=== PATIENT | female | born 1995 | race Caucasian/White ===

== ENCOUNTER 2019-11-01 09:55 | Emergency (ER) | payer MEDICAID, OTHER ==
[~2019-11-01] VITALS: Ht 175.2 cm; Wt 54.5 kg
[2019-11-01 10:31] LABS: SODIUM 139 MMOL/L (135-145)
[2019-11-01 10:32] LABS: ALANINE AMINOTRANSFERASE 5 U/L (0-55); ALBUMIN 4.1 GM/DL (3.2-4.5); ALKALINE PHOSPHATASE 54 U/L (40-136); BILIRUBIN,TOTAL 0.6 MG/DL (0.1-1.0); BUN/CREATININE RATIO 29; CALCIUM 8.9 MG/DL (8.5-10.1); CARBON DIOXIDE 23 MMOL/L (21-32); CHLORIDE 106 MMOL/L (98-107); CREATININE SERUM 0.63 MG/DL (0.60-1.30); GFR ESTIMATED > 60; GLUCOSE 96 MG/DL (70-105); LIPASE 26 U/L (8-78); TOTAL PROTEIN 7.5 GM/DL (6.4-8.2)
[2019-11-01 10:33] LABS: HEMATOCRIT 36 % (35-52); HEMOGLOBIN 12.5 G/DL (11.5-16.0); MEAN CORPUSCULAR HEMOGLOBIN 29 PG (25-34); MEAN CORPUSCULAR VOLUME 84 FL (80-99); WHITE BLOOD COUNT 7.1 10^3/uL (4.3-11.0)
[2019-11-01 10:34] LABS: BASOPHILS % (AUTO) 0 % (0-10); EOSINOPHILS # (AUTO) 0.2 10^3/uL (0.0-0.3); EOSINOPHILS % (AUTO) 2 % (0-10); LYMPHOCYTES # (AUTO) 2.1 X 10^3 (1.0-4.0); LYMPHOCYTES % (AUTO) 30 % (12-44); MEAN CORPUSCULAR HGB CONC 35 G/DL (32-36); MEAN PLATELET VOLUME 9.7 FL (7.4-10.4); MONOCYTES # (AUTO) 0.5 X 10^3 (0.0-1.0); MONOCYTES % (AUTO) 7 % (0-12); NEUTROPHILS # (AUTO) 4.3 X 10^3 (1.8-7.8); NEUTROPHILS % (AUTO) 61 % (42-75); PLATELET COUNT 255 10^3/uL (130-400); RED CELL DISTRIBUTION WIDTH 12.6 % (10.0-14.5)
--- NOTE | 2019-11-01 10:37 | Diagnostic Imaging Report ---
INDICATION: Abdominal pain COMPARISON: None available TECHNIQUE: 3 radiographs of the abdomen dated 11/01/2019. FINDINGS: Visualized lung bases are clear. Gas is identified throughout the colon extending into the lower pelvis. No dilated loops of small bowel. No differential air-fluid levels. No free air. No suspicious calcifications overlying the renal shadows. The liver appears borderline enlarged measuring up to 19 cm in craniocaudal dimension. IMPRESSION: No evidence of bowel obstruction or free air. Borderline hepatomegaly. Dictated by: Dictated on workstation # [id number]
--- NOTE | 2019-11-01 10:41 | ED Abdominal Pain ---
General Chief Complaint: Abdominal/GI Problems Stated Complaint: ABD PAIN Nursing Triage Note: Patient to ED per [facility]. Boyfriend called 911 for pt's severe abd pain that started just 1 hr before arriving awakening her. Pt denies other symptoms. Sepsis Screen: No Definite Risk Source of Information: Patient History of Present Illness Date Seen by Provider: Nov 01, 2019 Time Seen by Provider: 10:00 Initial Comments 24-year-old female presents with sudden onset of abdominal pain that woke her from sleep this morning. Denies any nausea vomiting or diarrhea. Normal bowel movement yesterday. [place] fine yesterday without any abdominal pain, had a normal meal last night, nothing unusual. Pain is located in the middle of her abdomen and upwards and on both sides. Feels like cramping, her last menstrual period was over a month ago. She is on control, sexually active and normal regular menstrual cycle. w 4 [facility] Allergies and Home Medications Allergies Coded Allergies: Penicillins (Unverified Adverse Reaction, Unknown, 11/01/19) ondansetron (Unverified Adverse Reaction, Unknown, 11/01/19) Uncoded Allergies: Silk tape (Adverse Reaction, Mild, rash, 11/01/19) Home Medications Norgestimate-Ethinyl Estradiol 1 Each Tablet, 1 EACH PO DAILY, (Reported) Patient Home Medication List Home Medication List Reviewed: Yes Review of Systems Review of Systems Constitutional: see HPI; No dizziness, No fever; malaise; No weakness Respiratory: No Symptoms Reported Cardiovascular: No Symptoms Reported Gastrointestinal: See HPI; Denies Abdomen Distended; Abdominal Pain; Denies Constipated, Denies Diarrhea, Denies Difficulty Swallowing, Denies Nausea, Denies Poor Appetite, Denies Poor Fluid Intake, Denies Vomiting Genitourinary: Denies Burning, Denies Drainage, Denies Frequency, Denies Flank Pain, Denies Hematuria Musculoskeletal: No back pain, No joint pain Skin: No change in color, No rash Past Dnovspr-Xpikdp-Tjmcfm Hx Past Med/Social Hx: Reviewed Nursing Past Med/Soc Hx Patient Social History Alcohol Use: Occasionally Uses Recreational Drug Use: No (Strongly denied) Smoking Status: Never a Smoker Recent Foreign Travel: No Contact w/Someone Who Travel: No Recent Infectious Disease Expo: No Recent Hopitalizations: No Physical Abuse: No Sexual Abuse: No Mistreated: No Fear: No Seasonal Allergies Seasonal Allergies: No Past Medical History Surgeries: Yes (C/S x 2) Adenoidectomy, Section, Tonsillectomy Respiratory: No Cardiac: No Neurological: No Last Menstrual Period: Sep 23, 2019 Hx : 6 Hx Para: 2 Hx Total # of Abortions (Sp): 4 Genitourinary: No Gastrointestinal: No Musculoskeletal: No Endocrine: No HEENT: No Cancer: No Psychosocial: No Integumentary: No Blood Disorders: No Physical Exam Vital Signs Vital Signs - First Documented 11/01/19 09:55 Temp 37.0 Pulse 74 Resp 16 B/P (MAP) 109/67 (81) Pulse Ox 98 O2 Delivery Room Air Capillary Refill : Less Than 3 Seconds Height/Weight/BMI Height: '" Weight: lbs. oz. kg; 17.00 BMI Method: General Appearance: WD/WN, no apparent distress Respiratory: chest non-tender, lungs clear, normal breath sounds Cardiovascular: regular rate, rhythm, no edema, no JVD Gastrointestinal: normal bowel sounds, soft, no organomegaly, no pulsatile mass; No distended, No guarding, No rebound; tenderness (diffuse, mild, non- localized); No hernia, No mass Back: normal inspection, no CVA tenderness Neurologic/Psychiatric: alert, normal mood/affect Skin: normal color, warm/dry Progress/Results/Core Measures Results/Orders Lab Results Laboratory Tests Test 11/01/19 10:00 11/01/19 10:13 Range/Units White Blood Count 7.1 4.3-11.0 10^3/uL Red Blood Count 4.29 L 4.35-5.85 10^6/uL Hemoglobin 12.5 11.5-16.0 G/DL Hematocrit 36 35-52 % Mean Corpuscular Volume 84 80-99 FL Mean Corpuscular Hemoglobin 29 25-34 PG Mean Corpuscular Hemoglobin Concent 35 32-36 G/DL Red Cell Distribution Width 12.6 10.0-14.5 % Platelet Count 255 130-400 10^3/uL Mean Platelet Volume 9.7 7.4-10.4 FL Neutrophils (%) (Auto) 61 42-75 % Lymphocytes (%) (Auto) 30 12-44 % Monocytes (%) (Auto) 7 0-12 % Eosinophils (%) (Auto) 2 0-10 % Basophils (%) (Auto) 0 0-10 % Neutrophils # (Auto) 4.3 1.8-7.8 X 10^3 Lymphocytes # (Auto) 2.1 1.0-4.0 X 10^3 Monocytes # (Auto) 0.5 0.0-1.0 X 10^3 Eosinophils # (Auto) 0.2 0.0-0.3 10^3/uL Basophils # (Auto) 0.0 0.0-0.1 10^3/uL Sodium Level 139 135-145 MMOL/L Potassium Level 4.0 3.6-5.0 MMOL/L Chloride Level 106 98-107 MMOL/L Carbon Dioxide Level 23 21-32 MMOL/L Anion Gap 10 5-14 MMOL/L Blood Urea Nitrogen 18 7-18 MG/DL Creatinine 0.63 0.60-1.30 MG/DL Estimat Glomerular Filtration Rate > 60 BUN/Creatinine Ratio 29 Glucose Level 96 70-105 MG/DL Calcium Level 8.9 8.5-10.1 MG/DL Corrected Calcium 8.8 8.5-10.1 MG/DL Total Bilirubin 0.6 0.1-1.0 MG/DL Aspartate Amino Transf (AST/SGOT) 12 5-34 U/L Alanine Aminotransferase (ALT/SGPT) 5 0-55 U/L Alkaline Phosphatase 54 40-136 U/L Total Protein 7.5 6.4-8.2 GM/DL Albumin 4.1 3.2-4.5 GM/DL Lipase 26 8-78 U/L Urine Color YELLOW Urine Clarity SL CLOUDY Urine pH 6.5 5-9 Urine Specific Gibson 1.025 H 1.016-1.022 Urine Protein NEGATIVE NEGATIVE Urine Glucose (UA) NEGATIVE NEGATIVE Urine Ketones NEGATIVE NEGATIVE Urine Nitrite NEGATIVE NEGATIVE Urine Bilirubin NEGATIVE NEGATIVE Urine Urobilinogen 0.2 < = 1.0 MG/DL Urine Leukocyte Esterase NEGATIVE NEGATIVE Urine RBC (Auto) NEGATIVE NEGATIVE Urine RBC NONE /HPF Urine WBC 2-5 /HPF Urine Squamous Epithelial Cells >50 H /HPF Urine Crystals NONE /LPF Urine Bacteria NEGATIVE /HPF Urine Casts NONE /LPF Urine Mucus MODERATE H /LPF Urine Culture Indicated NO Urine Test NEGATIVE NEGATIVE My Orders Orders - ROVENSTINEKESHAV L DO Cbc With Automated Diff (11/01/19 10:01) Comprehensive Metabolic Panel (11/01/19 10:01) Lipase (11/01/19 10:01) Urinalysis (11/01/19 10:01) Hcg,Qualitative Urine (11/01/19 10:01) Abdomen Flat & Upright/Decub (11/01/19 10:01) Vital Signs/I&O 11/01/19 09:55 Temp 37.0 Pulse 74 Resp 16 B/P (MAP) 109/67 (81) Pulse Ox 98 O2 Delivery Room Air Blood Pressure Mean: 81 Diagnostic Imaging Diagonstic Imaging: Xray Comments Date of Exam:11/01/19 ABDOMEN FLAT & UPRIGHT/DECUB INDICATION: Abdominal pain COMPARISON: None available TECHNIQUE: 3 radiographs of the abdomen dated 11/01/2019. FINDINGS: Visualized lung bases are clear. Gas is identified throughout the colon extending into the lower pelvis. No dilated loops of small bowel. No differential air-fluid levels. No free air. No suspicious calcifications overlying the renal shadows. The liver appears borderline enlarged measuring up to 19 cm in craniocaudal dimension. IMPRESSION: No evidence of bowel obstruction or free air. Borderline hepatomegaly. Dictated on workstation # [id number] Dict: 11/01/19 1032 Trans: 11/01/19 1037 AMAN [id number] Interpreted by: GARTH XIONG MD Electronically signed by: Departure Impression Primary Impression: Abdominal pain Qualified Codes: R10.9 - Unspecified abdominal pain Disposition: 01 HOME, SELF-CARE Condition: Stable Departure-Patient Inst. Decision time for Depature: 10:59 Patient Instructions: Constipation, Adult (DC), Stomach Ache and Stomach Upset Add. Discharge Instructions: See your PCP in 3 days if not improving. Follow up to the nearest ER if your symptoms get worse in the next 1-2 days. Try some MILK of Magnesia daily for the next couple of days and consume liquids only until you are feeling better All discharge instructions reviewed with patient and/or family. Voiced understanding. Scripts Ibuprofen (Ibuprofen) 800 Mg Tablet 800 MG PO Q8H PRN for PAIN, #30 TAB 0 Refills Prov: KESHAV RIVERA DO 11/01/19 KESHAV RIVERA DO Nov 01, 2019 10:41
[2019-11-01] MEDS ORDERED: NORG1TAB14 PO (10:42)
[2019-11-01 10:52] LABS: CLARITY,URINE SL CLOUDY; COLOR,URINE YELLOW; GLUCOSE, URINE (UA) NEGATIVE (NEGATIVE); KETONES,URINE NEGATIVE (NEGATIVE); NITRITE,URINE NEGATIVE (NEGATIVE); PH,URINE 6.5 (5-9); PROTEIN,URINE NEGATIVE (NEGATIVE)
[2019-11-01 10:53] LABS: BACTERIA,URINE NEGATIVE /HPF; BILIRUBIN,URINE NEGATIVE (NEGATIVE); LEUKOCYTE ESTERASE ,URINE NEGATIVE (NEGATIVE); SQUAMOUS EPITHELIAL CELL,UR >50 /HPF
[2019-11-01] MEDS ORDERED: IBUP-1780 PO (11:01)
[2019-11-01 11:05] VITALS: BP 110/55
== END 2019-11-01 11:05 | disposition home or self-care (01) ==
LOC: ER FS 09:57
DX: R10.84 Generalized abdominal pain (principal); Z88.2 Allergy status to sulfonamides; Z88.8 Allergy status to other drugs, medicaments and biological substances
CPT/HCPCS: 36415; 74019; 80053; 81000; 83690; 84703; 85025

== ENCOUNTER 2019-12-01 07:45 | Emergency (ER) | payer MEDICAID ==
[~2019-12-01] VITALS: Ht 175.3 cm; Wt 56.2 kg
[~2019-12-01 07:45] MED LIST: IBUP-1780 PO; NORG1TAB14 PO
--- NOTE | 2019-12-01 08:07 | ED EENT ---
History of Present Illness General Chief Complaint: Ear Problems Stated Complaint: FEEL LIKE THROAT IS NUMB; CANT HEAR OUT OF LT EAR Nursing Triage Note: Patient reports that yesterday she had a swollen lymph node on the left side of her neck, reports her throat feels "numb", states she is unable to hear out of her left ear. Source: patient History of Present Illness Date Seen by Provider: Dec 01, 2019 Time Seen by Provider: 07:48 Initial Comments 24-year-old female presenting with complaints of swollen tender lymph node on the left side of her neck since yesterday. She was having some pain with swallowing that improved with using a cough drop. Her daughter has been running a fever and having upper respiratory symptoms. Today she felt like her throat was "numb" and she was having trouble hearing out of her left ear. She has some mild cough. She was having some difficulty swallowing due to her symptoms. She also states that her last menstrual period was 13 October and she has had some both positive and negative tests at home. She is unsure if she is currently or not. Allergies and Home Medications Allergies Coded Allergies: Penicillins (Unverified Adverse Reaction, Unknown, 11/01/19) ondansetron (Unverified Adverse Reaction, Unknown, 11/01/19) Uncoded Allergies: Silk tape (Adverse Reaction, Mild, rash, 11/01/19) Home Medications Ibuprofen 800 Mg Tablet, 800 MG PO Q8H PRN for PAIN Prescribed by: KESHAV RIVERA on 11/01/19 1101 Norgestimate-Ethinyl Estradiol 1 Each Tablet, 1 EACH PO DAILY, (Reported) Prednisone 20 Mg Tab, 40 MG PO DAILY Prescribed by: MG DUMONT on 12/01/19 0925 Patient Home Medication List Home Medication List Reviewed: Yes Review of Systems Review of Systems Constitutional: No chills, No fever; malaise Eyes: No Symptoms Reported Ears: See HPI Nose: no symptoms reported Mouth: no symptoms reported Throat: see HPI Respiratory: cough (mild) Cardiovascular: no symptoms reported Gastrointestinal: no symptoms reported LMP: Oct 14, 2019 Musculoskeletal: no symptoms reported Skin: no symptoms reported Neurological: No Symptoms Reported Hematologic/Lymphatic: See HPI, Swollen Glands (left side of neck) Past Rxuupzm-Mxiynj-Vvmsxp Hx Past Med/Social Hx: Reviewed Nursing Past Med/Soc Hx Patient Social History Alcohol Use: Occasionally Uses Recreational Drug Use: No Smoking Status: Never a Smoker 2nd Hand Smoke Exposure: No Recent Foreign Travel: No Contact w/Someone Who Travel: No Recent Infectious Disease Expo: No Recent Hopitalizations: No Physical Abuse: No Sexual Abuse: No Mistreated: No Fear: No Seasonal Allergies Seasonal Allergies: No Past Medical History Surgeries: Yes (C/S x 2) Adenoidectomy, Section, Tonsillectomy Respiratory: No Cardiac: No Neurological: No Last Menstrual Period: Oct 14, 2019 Genitourinary: No Gastrointestinal: No Musculoskeletal: No Endocrine: No HEENT: No Cancer: No Psychosocial: No Integumentary: No Blood Disorders: No Physical Exam Vital Signs Vital Signs - First Documented 12/01/19 07:50 Temp 37.1 Pulse 107 Resp 16 B/P (MAP) 104/65 (78) Pulse Ox 96 O2 Delivery Room Air Height, Weight, BMI Height: '" Weight: lbs. oz. kg; 18.00 BMI Method: General Appearance: WD/WN, no apparent distress, thin Eyes: bilateral eye PERRL, bilateral eye EOMI Ears: left ear TM dull (with small effusion) Mouth/Throat: pharynx swelling (posterior pharynx erythema with exudate present) Neck: full range of motion, supple, lymphadenopathy (L) (tender to palpation) Cardiovascular: normal peripheral pulses, tachycardia Respiratory: chest non-tender, lungs clear, normal breath sounds Neurologic/Psychiatric: alert, normal mood/affect, oriented x 3 Skin: normal color, warm/dry Progress/Results/Core Measures Results/Orders Lab Results Laboratory Tests Test 12/01/19 08:00 Range/Units Group A Streptococcus Screen NEGATIVE NEGATIVE My Orders Orders - MG DUMONT MD Urine Bedside (12/01/19 08:00) Rapid Strep A Screen (12/01/19 08:00) Prednisone Tablet (Deltasone Tablet) (12/01/19 09:18) Vital Signs/I&O 12/01/19 12/01/19 07:50 09:49 Temp 37.1 Pulse 107 101 Resp 16 14 B/P (MAP) 104/65 (78) 96/60 Pulse Ox 96 100 O2 Delivery Room Air Room Air Blood Pressure Mean: 78 Progress Progress Note #1: Progress Note check rapid strep and bedside HCG Progress Note #2: Time: 09:19 Progress Note Updated pt about results and that rapid strep negative. She wanted to wait for culture before taking any antibiotic. Advised the the bedside test was negative. Will treat with a steroid burst to try and help with the pain and swelling as well as some lymph node irritation. If this is viral it should also help with her symptoms. If the culture comes back positive for strep she would be notified so she can be started on antibiotics Monday or Monday. If symptoms are worsening or not improving check back with the clinic. Try warm salt water gargles and symptomatic care for her throat pain and swelling Departure Impression Primary Impression: Exudative pharyngitis Additional Impression: Left cervical lymphadenopathy Disposition: HOME, SELF-CARE Condition: Stable Departure-Patient Inst. Decision time for Depature: 09:22 Referrals: LILIANA SPRAGUE MD (PCP/Family) Primary Care Physician Patient Instructions: LYMPH NODE SWELLING, Sore Throat, Adult (DC), Strep Throat Test Add. Discharge Instructions: Try warm salt water gargles to help with throat pain and irritation. Take the steroid to help with pain and inflammation in throat and lymph nodes in neck and throat. This should also help with swelling causing irritation with your ear and making it so you have trouble hearing from left ear. Check back with your doctor in clinic if not improving this week. If the culture is positive for strep you will get a call in 2-3 days when it comes back so you can be started on antibiotics. All discharge instructions reviewed with patient and/or family. Voiced understanding. Scripts Prednisone (Prednisone) 20 Mg Tab 40 MG PO DAILY for pharyngitis for 3 Days, #6 TAB 0 Refills Prov: MG DUMONT MD 12/01/19 MG DUMONT MD Dec 01, 2019 08:07
[2019-12-01] MEDS ORDERED: predniSONE 20 MG TAB PO STA (09:18)
[2019-12-01] MEDS ORDERED: PRD20T PO (09:25)
[2019-12-01 09:49] VITALS: BP 96/60
[2019-12-02] MEDS ORDERED: CEPH500C PO (16:53)
== END 2019-12-01 09:49 | disposition home or self-care (01) ==
LOC: EDUNIT# 07:45 → ER FS 07:46
DX: J02.9 Acute pharyngitis, unspecified (principal); R59.1 Generalized enlarged lymph nodes; Z79.52 Long term (current) use of systemic steroids; Z88.0 Allergy status to penicillin; Z88.8 Allergy status to other drugs, medicaments and biological substances
CPT/HCPCS: 84703; 87430; 99284

== ENCOUNTER 2020-01-01 18:26 | Emergency (ER) | payer MEDICAID ==
[~2020-01-01] VITALS: Ht 175.2 cm; Wt 58.5 kg
[~2020-01-01 18:26] MED LIST changes: +CEPH500C PO; +PRD20T PO
[2020-01-01 18:55] LABS: BACTERIA,URINE TRACE /HPF; BILIRUBIN,URINE NEGATIVE (NEGATIVE); CLARITY,URINE CLEAR; COLOR,URINE YELLOW; GLUCOSE, URINE (UA) NEGATIVE (NEGATIVE); KETONES,URINE NEGATIVE (NEGATIVE); LEUKOCYTE ESTERASE ,URINE NEGATIVE (NEGATIVE); NITRITE,URINE NEGATIVE (NEGATIVE); PH,URINE 6.5 (5-9); PROTEIN,URINE NEGATIVE (NEGATIVE)
--- NOTE | 2020-01-01 19:00 | NUR ---
Attempts x 3 with handheld doppler and unable to find FHT, consistant finding 70-75 in correlation with patient's heartbeat. Dr Peterson notified.
--- NOTE | 2020-01-01 19:33 | ED General ---
General Chief Complaint: Female Reproductive Stated Complaint: PAIN ON RT SIDE OF ABD Nursing Triage Note: Patient presents to ER reporting right sided abd pain starting 1430 and is approx 11 wks . Pt has no discharge. Pt states pain usually happens on the left side. LMP 10/14/19 but states her HCG does not correlate this date. Nursing Sepsis Screen: No Definite Risk Source of Information: Patient History of Present Illness Date Seen by Provider: Jan 01, 2020 Time Seen by Provider: 19:33 Initial Comments 24-year-old female presenting with complaints of right-sided low abdominal pain. She states this started around 2:30 this afternoon. She also reports that she is approximately 11 weeks with her last menstrual period on October 14, 2019. She is following with Dr. Sprague out of [place] for her but has not had a ultrasound yet. She has one scheduled in early January to check these. She has had multiple miscarriages in the past. She was worried that this might be another miscarriage when the pain was not improving at home. She was also unsure what she could take for pain at home. She had tried drinking extra water and laying down for a nap but that had not made the pain go away. She denies any burning with urination or vaginal bleeding or discharge. She does report she has previously had pain on the left side that was from some cellulitis and ligament pain but had not had the pain on the right side like this before. She thought it might be ligament pain but again was not sure so she came in to be checked. So far they have not been able to find heart tones in the clinic but again she is approximately 11 weeks by last menstrual period. She has some chronic nausea due to but that is no different than normal this afternoon and evening. She denies any headache or change in vision. She has no increased swelling in her legs. She has shortness of breath. She has no fever or chills. Allergies and Home Medications Allergies Coded Allergies: Penicillins (Unverified Adverse Reaction, Unknown, 11/01/19) ondansetron (Unverified Adverse Reaction, Unknown, 11/01/19) Uncoded Allergies: Silk tape (Adverse Reaction, Mild, rash, 11/01/19) Home Medications Cephalexin 500 Mg Capsule, 500 MG PO BID, (Reported) Ibuprofen 800 Mg Tablet, 800 MG PO Q8H PRN for PAIN Prescribed by: KESHAV RIVERA on 11/01/19 1101 Norgestimate-Ethinyl Estradiol 1 Each Tablet, 1 EACH PO DAILY, (Reported) Prednisone 20 Mg Tab, 40 MG PO DAILY Prescribed by: MG DUMONT on 12/01/19 0938 Patient Home Medication List Home Medication List Reviewed: Yes Review of Systems Review of Systems Constitutional: No chills, No dizziness, No fever EENTM: No ear pain, No blurred vision, No epistaxis, No nose congestion, No throat pain Respiratory: No cough, No short of breath Cardiovascular: No chest pain, No edema Gastrointestinal: see HPI Genitourinary: see HPI; No discharge, No dysuria, No pain, No other (no vaginal bleeding) : Yes LMP: Oct 14, 2019 Musculoskeletal: No back pain, No muscle pain Skin: No pruritus, No rash Psychiatric/Neurological: Denies Headache, Denies Numbness, Denies Paresthesia, Denies Seizure Hematologic/Lymphatic: Denies Blood Clots, Denies Easy Bleeding, Denies Easy Bruising Past Ufqulop-Gnqlpz-Lmoxwa Hx Past Med/Social Hx: Reviewed Nursing Past Med/Soc Hx Patient Social History Alcohol Use: Denies Use Recreational Drug Use: No Smoking Status: Never a Smoker 2nd Hand Smoke Exposure: No Recent Foreign Travel: No Contact w/Someone Who Travel: No Recent Infectious Disease Expo: No Recent Hopitalizations: No Physical Abuse: No Sexual Abuse: No Mistreated: No Fear: No Seasonal Allergies Seasonal Allergies: No Past Medical History Surgeries: Yes (C/S x 2) Adenoidectomy, Section, Tonsillectomy Respiratory: No Cardiac: No Neurological: No : Yes Last Menstrual Period: Oct 14, 2019 Hx : 10 Hx Para: 2 Hx Total # of Abortions (Sp): 7 Genitourinary: No Gastrointestinal: No Musculoskeletal: No Endocrine: No HEENT: No Cancer: No Psychosocial: No Integumentary: No Blood Disorders: No Physical Exam Vital Signs Vital Signs - First Documented 01/01/20 18:30 Temp 37.2 Pulse 72 Resp 16 B/P (MAP) 110/58 (75) Pulse Ox 99 O2 Delivery Room Air Capillary Refill : Less Than 3 Seconds Height, Weight, BMI Height: '" Weight: lbs. oz. kg; 19.00 BMI Method: General Appearance: No Apparent Distress, WD/WN, Anxious HEENT: PERRL/EOMI Neck: Full Range of Motion, Non Tender, Supple Respiratory: Chest Non Tender, Lungs Clear, Normal Breath Sounds, No Accessory Muscle Use, No Respiratory Distress Cardiovascular: Regular Rate, Rhythm, No Murmur, Normal Peripheral Pulses Gastrointestinal: Normal Bowel Sounds, No Pulsatile Mass, Soft, Tenderness (mild RLQ) Extremity: Normal Capillary Refill, Normal Inspection, Normal Range of Motion, Non Tender, No Calf Tenderness, No Pedal Edema Neurologic/Psychiatric: Alert, Oriented x3, No Motor/Sensory Deficits, [employer] II- XII Norm as Tested Skin: Normal Color, Warm/Dry Progress/Results/Core Measures Suspected Sepsis Recent Fever Within 48 Hours: No Infection Criteria Present: None New/Unexplained Altered Menta: No Sepsis Screen: No Definite Risk SIRS Temperature: Pulse: 72 Respiratory Rate: 16 Blood Pressure 110 /58 Mean: 75 Results/Orders Lab Results Laboratory Tests Test 01/01/20 18:40 Range/Units Urine Color YELLOW Urine Clarity CLEAR Urine pH 6.5 5-9 Urine Specific [place] 1.025 H 1.016-1.022 Urine Protein NEGATIVE NEGATIVE Urine Glucose (UA) NEGATIVE NEGATIVE Urine Ketones NEGATIVE NEGATIVE Urine Nitrite NEGATIVE NEGATIVE Urine Bilirubin NEGATIVE NEGATIVE Urine Urobilinogen 0.2 < = 1.0 MG/DL Urine Leukocyte Esterase NEGATIVE NEGATIVE Urine RBC (Auto) NEGATIVE NEGATIVE Urine RBC NONE /HPF Urine WBC NONE /HPF Urine Squamous Epithelial Cells 5-10 /HPF Urine Crystals NONE /LPF Urine Bacteria TRACE /HPF Urine Casts NONE /LPF Urine Mucus LARGE H /LPF Urine Culture Indicated NO My Orders Orders - MG DUMONT MD Ua Culture If Indicated (01/01/20 18:36) Heart Tones (01/01/20 18:36) Vital Signs/I&O 01/01/20 01/01/20 18:30 20:00 Temp 37.2 Pulse 72 71 Resp 16 16 B/P (MAP) 110/58 (75) 113/63 Pulse Ox 99 100 O2 Delivery Room Air Room Air Capillary Refill : Less Than 3 Seconds Blood Pressure Mean: 75 Progress Note : Progress Note UA clear and not showing signs of infection or bleeding. Unable to obtain FHT, but the pt is still early in and they have not been able to find them in clinic yet either. Discussed option of obtaining beta hCG level for monitoring as well as calling other emergency departments to find out where I could transfer her for ultrasound to be done tonight. Patient refused stating that she was tired and would rather just go home. She knew that she had an ultrasound scheduled already. With not having any bleeding or discharge she did not feel that she needed a blood draw for her hormone level and did [facility] She states that she thinks that ultrasound could be done at [place] if she had to have one done overnight. Advised to check their she had to have one with worsening symptoms. Counseled that she could try Tylenol for pain. Continue to push fluids and rest. Return or seek medical care if she starts having vaginal bleeding or discharge. Otherwise check back with her OB doctor during the day She also stated that they had not given her any direction when she had gone for her first clinic visit about what meds she couldn't couldn't take during and she couldn't remember what things she could do with so I advised her I would try to give her handouts of what information I have available for early and medication safety in Departure Impression Primary Impression: Pelvic pain affecting in first trimester, antepartum Additional Impression: Incidental Disposition: HOME, SELF-CARE Condition: Stable Departure-Patient Inst. Decision time for Depature: 19:52 Referrals: LILIANA SPRAGUE MD (PCP/Family) Primary Care Physician Patient Instructions: How to Plan and Prepare for a Healthy , Medications and , Nutrition Before and During , Round Ligament Pain, Stomach Pain in Early , Taking Nwkg-uxm-Ajlafif Medicines During Add. Discharge Instructions: You may take Acetaminophen (Tylenol) while . You may take up to 3,000 mg in a 24 hour period. Stay well hydrated and get plenty of rest. If the pain is worsening or you have more problems then return or check with your OB doctor at [place] as you may need an Ultrasound to check for more details on the and the baby. All discharge instructions reviewed with patient and/or family. Voiced understanding. MG DUMONT MD Jan 01, 2020 19:33
[2020-01-01 20:00] VITALS: BP 113/63
== END 2020-01-01 20:00 | disposition home or self-care (01) ==
LOC: EDUNIT# 18:26 → ER FS 18:27
DX: O26.891 Other specified pregnancy related conditions, first trimester (principal); R10.31 Right lower quadrant pain; R06.02 Shortness of breath; Z79.52 Long term (current) use of systemic steroids; Z88.0 Allergy status to penicillin; Z88.8 Allergy status to other drugs, medicaments and biological substances; Z3A.11 11 weeks gestation of pregnancy
CPT/HCPCS: 81000; 99282

== ENCOUNTER 2020-03-29 15:44 | Emergency (ER) | payer MEDICAID ==
[~2020-03-29] VITALS: Ht 175.2 cm; Wt 63.5 kg
[2020-03-29 16:13] LABS: BILIRUBIN,URINE NEGATIVE (NEGATIVE); CLARITY,URINE CLEAR; COLOR,URINE YELLOW; GLUCOSE, URINE (UA) NEGATIVE (NEGATIVE); KETONES,URINE NEGATIVE (NEGATIVE); LEUKOCYTE ESTERASE ,URINE NEGATIVE (NEGATIVE); NITRITE,URINE NEGATIVE (NEGATIVE); PROTEIN,URINE NEGATIVE (NEGATIVE)
[2020-03-29 16:19] LABS: AMORPHOUS SEDIMENT,UR FEW AMOR URATES /LPF; BACTERIA,URINE TRACE /HPF
--- NOTE | 2020-03-29 16:26 | ED GU-Female ---
General Chief Complaint: Respiratory Problems Stated Complaint: CP, SOB, ABD CRAMPING, 18 WKS Nursing Triage Note: Pt reports being 18+ weeks and c/o chest tightness/pressure that is intermittent and worsens with movement. Pt also c/o SOB. Pt denies COVID exposure or symptoms. Pt reports having same symptoms last . Pt reports symptoms began last at five months and pt was put on bedrest at the time. Pt reports symptoms are worse with this . Nursing Sepsis Screen: No Definite Risk History of Present Illness Date Seen by Provider: Mar 29, 2020 Time Seen by Provider: 15:55 Initial Comments 25-year-old female who is approximately 18 weeks weeks gestation reports a 3 to 5-day history of intermittent chest pressure and shortness of breath, symptoms no worse today than on previous days, no labored or distressed breathing. She has not seen her HEEL CURVER, she is scheduled for an appointment this week. 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 She had similar symptoms with previous pregnancies, which has required bedrest for remained of . She denies any nausea/vomiting. She is taking vit daily. She tried resting today and no improvement in her symptoms. No known COVID-19 exposure or symptoms. Her children are 2 and 3 years old. LMP Nov 05, 2019 which would be 22 weeks gestation, however she reports irregular cycles and early US indicated her dates were off and she is 18-20 weeks. Timing/Duration: other (3-4 days) Severity/Quality: mild Modifying Factors: Improves With Lying down Associated Symptoms: denies symptoms Allergies and Home Medications Allergies Coded Allergies: Penicillins (Unverified Adverse Reaction, Unknown, 11/01/19) ondansetron (Unverified Adverse Reaction, Unknown, 11/01/19) Uncoded Allergies: Silk tape (Adverse Reaction, Mild, rash, 11/01/19) Home Medications Cephalexin 500 Mg Capsule, 500 MG PO BID, (Reported) Ibuprofen 800 Mg Tablet, 800 MG PO Q8H PRN for PAIN Prescribed by: KESHAV RIVERA on 11/01/19 1101 Norgestimate-Ethinyl Estradiol 1 Each Tablet, 1 EACH PO DAILY, (Reported) Prednisone 20 Mg Tab, 40 MG PO DAILY Prescribed by: MG DUMONT on 12/01/19 0925 Patient Home Medication List Home Medication List Reviewed: Yes Review of Systems Review of Systems Constitutional: no symptoms reported, see HPI Respiratory: see HPI, dyspnea on exertion Cardiovascular: see HPI, palpitations Gastrointestinal: no symptoms reported, see HPI Psychiatric/Neurological: No Symptoms Reported, See HPI; Denies Anxiety, Denies Depressed, Denies Emotional Problems All Other Systemes Reviewed Negative Unless Noted: Yes Past Nxhgkqv-Dcaubc-Musaih Hx Past Med/Social Hx: Reviewed Nursing Past Med/Soc Hx Patient Social History Alcohol Use: Denies Use Smoking Status: Never a Smoker 2nd Hand Smoke Exposure: No Recent Infectious Disease Expo: No Recent Hopitalizations: No Seasonal Allergies Seasonal Allergies: No Past Medical History Surgeries: Yes (C/S x 2) Adenoidectomy, Section, Tonsillectomy Respiratory: No Cardiac: No Neurological: No Last Menstrual Period: Nov 05, 2019 Hx : 7 Hx Para: 2 Hx Total # of Abortions (Sp): 4 Genitourinary: No Gastrointestinal: No Musculoskeletal: No Endocrine: No HEENT: No Cancer: No Psychosocial: No Integumentary: No Blood Disorders: No Physical Exam Vital Signs Vital Signs - First Documented 03/29/20 15:55 Temp 36.6 Pulse 101 Resp 20 B/P (MAP) 117/70 (86) Pulse Ox 100 O2 Delivery Room Air Capillary Refill : Less Than 3 Seconds Height, Weight, BMI Height: '" Weight: lbs. oz. kg; 20.00 BMI Method: General Appearance: WD/WN, no apparent distress HEENT: PERRL/EOMI, normal ENT inspection, TMs normal, pharynx normal Neck: non-tender, full range of motion, supple, normal inspection Cardiovascular: normal peripheral pulses, regular rate, rhythm Respiratory: chest non-tender, lungs clear, normal breath sounds Gastrointestinal: normal bowel sounds, non tender, soft, distended (compatible with 18-22 weeks gestation), other (FHT 140-155) Extremities: normal range of motion, non-tender, normal inspection, no pedal edema, no calf tenderness, normal capillary refill Neurologic/Psychiatric: no motor/sensory deficits, alert, normal mood/affect, oriented x 3 Skin: normal color, warm/dry Progress/Results/Core Measures Suspected Sepsis Recent Fever Within 48 Hours: No Infection Criteria Present: None New/Unexplained Altered Menta: No Sepsis Screen: No Definite Risk SIRS Temperature: Pulse: 101 Respiratory Rate: 20 Laboratory Tests 03/29/20 16:15: White Blood Count 12.7H Blood Pressure 117 /70 Mean: 86 Laboratory Tests 03/29/20 16:15: Creatinine 0.56L, Platelet Count 303, Total Bilirubin 0.3 Results/Orders Lab Results Laboratory Tests Test 03/29/20 15:55 03/29/20 16:15 Range/Units Urine Color YELLOW Urine Clarity CLEAR Urine pH 6.0 5-9 Urine Specific Petros 1.025 H 1.016-1.022 Urine Protein NEGATIVE NEGATIVE Urine Glucose (UA) NEGATIVE NEGATIVE Urine Ketones NEGATIVE NEGATIVE Urine Nitrite NEGATIVE NEGATIVE Urine Bilirubin NEGATIVE NEGATIVE Urine Urobilinogen 1.0 < = 1.0 MG/DL Urine Leukocyte Esterase NEGATIVE NEGATIVE Urine RBC (Auto) NEGATIVE NEGATIVE Urine RBC NONE /HPF Urine WBC 2-5 /HPF Urine Crystals PRESENT H /LPF Urine Amorphous Sediment FEW ANNA URATES H /LPF Urine Bacteria TRACE /HPF Urine Casts NONE /LPF Urine Mucus MODERATE H /LPF Urine Culture Indicated NO White Blood Count 12.7 H 4.3-11.0 10^3/uL Red Blood Count 3.41 L 3.80-5.11 10^6/uL Hemoglobin 10.5 L 11.5-16.0 g/dL Hematocrit 31 L 35-52 % Mean Corpuscular Volume 92 80-99 fL Mean Corpuscular Hemoglobin 31 25-34 pg Mean Corpuscular Hemoglobin Concent 34 32-36 g/dL Red Cell Distribution Width 13.3 10.0-14.5 % Platelet Count 303 130-400 10^3/uL Mean Platelet Volume 9.5 9.0-12.2 fL Immature Granulocyte % (Auto) 1 % Neutrophils (%) (Auto) 76 H 42-75 % Lymphocytes (%) (Auto) 14 12-44 % Monocytes (%) (Auto) 8 0-12 % Eosinophils (%) (Auto) 2 0-10 % Basophils (%) (Auto) 0 0-10 % Neutrophils # (Auto) 9.7 H 1.8-7.8 10^3/uL Lymphocytes # (Auto) 1.8 1.0-4.0 10^3/uL Monocytes # (Auto) 1.0 0.0-1.0 10^3/uL Eosinophils # (Auto) 0.2 0.0-0.3 10^3/uL Basophils # (Auto) 0.0 0.0-0.1 10^3/uL Immature Granulocyte # (Auto) 0.1 0.0-0.1 10^3/uL Sodium Level 138 135-145 MMOL/L Potassium Level 3.4 L 3.6-5.0 MMOL/L Chloride Level 105 98-107 MMOL/L Carbon Dioxide Level 22 21-32 MMOL/L Anion Gap 11 5-14 MMOL/L Blood Urea Nitrogen 7 7-18 MG/DL Creatinine 0.56 L 0.60-1.30 MG/DL Estimat Glomerular Filtration Rate > 60 BUN/Creatinine Ratio 13 Glucose Level 80 70-105 MG/DL Calcium Level 8.5 8.5-10.1 MG/DL Corrected Calcium 8.9 8.5-10.1 MG/DL Total Bilirubin 0.3 0.1-1.0 MG/DL Aspartate Amino Transf (AST/SGOT) 11 5-34 U/L Alanine Aminotransferase (ALT/SGPT) 7 0-55 U/L Alkaline Phosphatase 43 40-136 U/L Total Protein 6.6 6.4-8.2 GM/DL Albumin 3.5 3.2-4.5 GM/DL Human Chorionic Gonadotropin, Quant 01345 H <5 MIU/ML My Orders Orders - NANCY COLON Cbc With Automated Diff (03/29/20 15:53) Hcg,Quantitative (03/29/20 15:53) Abo Rh Type (03/29/20 15:53) Ed Iv/Invasive Line Start (03/29/20 15:53) Comprehensive Metabolic Panel (03/29/20 15:53) Urine Bedside (03/29/20 15:53) Ua Culture If Indicated (03/29/20 15:55) Vital Signs/I&O 03/29/20 03/29/20 15:55 17:35 Temp 36.6 36.6 Pulse 101 99 Resp 20 20 B/P (MAP) 117/70 (86) 105/68 (86) Pulse Ox 100 100 O2 Delivery Room Air Room Air Capillary Refill : Less Than 3 Seconds Blood Pressure Mean: 86 Progress Note : Time: 15:55 Progress Note Patient seen and evaluated, reassured patient with normal heart tones. She does report anxiety related to previous history of 7 miscarriages. Discussed options in treating both the pain and the anxiety, patient declines need for medicine at this time. Reassured her that she can take Tylenol for pain. 1630 Patient stable no complaints at this time. Discussed as the progresses, She will have some shortness of breath or compression of the diaphragm from her expanding uterus. 1710 Reviewed labs with patient, no concerns at this time. Her symptoms continue to be minimal. Discharge instructions and careful follow-up stressed. She does have an appointment in 2 days with her HEEL CURVER. Departure Impression Primary Impression: Second trimester Disposition: HOME, SELF-CARE Condition: Improved Departure-Patient Inst. Decision time for Depature: 17:10 Referrals: VANESSA BOSE MD (PCP/Family) Primary Care Physician Patient Instructions: Stomach Pain Later in Add. Discharge Instructions: Activity as tolerated, short, frequent walks. Increase water intake, 16 oz every 2 hours while awake. Follow up with Dr. Bose. Return to the emergency dept, for new/urgent health care problems. All discharge instructions reviewed with patient and/or family. Voiced understanding. Copy Copies To 1: VNAESSA BOSE MD, AMY ARNP Mar 29, 2020 16:26
[2020-03-29 16:29] LABS: BASOPHILS % (AUTO) 0 % (0-10); EOSINOPHILS # (AUTO) 0.2 10^3/uL (0.0-0.3); EOSINOPHILS % (AUTO) 2 % (0-10); HEMATOCRIT 31 % (35-52); HEMOGLOBIN 10.5 g/dL (11.5-16.0); LYMPHOCYTES # (AUTO) 1.8 10^3/uL (1.0-4.0); LYMPHOCYTES % (AUTO) 14 % (12-44); MEAN CORPUSCULAR HEMOGLOBIN 31 pg (25-34); MEAN CORPUSCULAR HGB CONC 34 g/dL (32-36); MEAN CORPUSCULAR VOLUME 92 fL (80-99); MEAN PLATELET VOLUME 9.5 fL (9.0-12.2); MONOCYTES % (AUTO) 8 % (0-12); NEUTROPHILS # (AUTO) 9.7 10^3/uL (1.8-7.8); NEUTROPHILS % (AUTO) 76 % (42-75); PLATELET COUNT 303 10^3/uL (130-400); WHITE BLOOD COUNT 12.7 10^3/uL (4.3-11.0)
[2020-03-29 16:38] LABS: ALBUMIN 3.5 GM/DL (3.2-4.5); CHLORIDE 105 MMOL/L (98-107); POTASSIUM 3.4 MMOL/L (3.6-5.0); SODIUM 138 MMOL/L (135-145)
[2020-03-29 16:39] LABS: CALCIUM 8.5 MG/DL (8.5-10.1)
[2020-03-29 16:40] LABS: GLUCOSE 80 MG/DL (70-105); TOTAL PROTEIN 6.6 GM/DL (6.4-8.2)
[2020-03-29 16:42] LABS: BILIRUBIN,TOTAL 0.3 MG/DL (0.1-1.0); CARBON DIOXIDE 22 MMOL/L (21-32)
[2020-03-29 16:44] LABS: ALKALINE PHOSPHATASE 43 U/L (40-136); CREATININE SERUM 0.56 MG/DL (0.60-1.30); GFR ESTIMATED > 60
[2020-03-29 16:45] LABS: BUN/CREATININE RATIO 13
[2020-03-29 16:47] LABS: ALANINE AMINOTRANSFERASE 7 U/L (0-55)
[2020-03-29 17:35] VITALS: BP 105/68
== END 2020-03-29 17:35 | disposition home or self-care (01) ==
LOC: EDUNIT# 15:44 → ER 15:47
DX: O26.92 Pregnancy related conditions, unspecified, second trimester (principal); Z88.0 Allergy status to penicillin; Z88.8 Allergy status to other drugs, medicaments and biological substances; Z3A.18 18 weeks gestation of pregnancy; Z79.52 Long term (current) use of systemic steroids
CPT/HCPCS: 36415; 80053; 81000; 84702; 84703; 85025; 86900; 86901

== ENCOUNTER 2020-04-11 15:02 | Outpatient (CLI) | payer MEDICAID ==
[~2020-04-11] VITALS: Ht 175.3 cm; Wt 64.9 kg
[2020-04-11 15:10] VITALS: BP 95/53
--- NOTE | 2020-04-11 15:10 | NUR ---
DEJAN NEUMANN presented to unit from ED, with c/o ABD PAIN. DEJAN NEUMANN weighed, gowned, voided, and to bed. EFHM and TOCO applied, VS taken. DEJAN NEUMANN oriented to bed controls, call light, TV, heat, and A/C controls.
[2020-04-11 15:24] VITALS: BP 95/53
--- NOTE | 2020-04-11 15:34 | NUR ---
FHT's dopplered at this time: 154 bpm. Abdomen soft and non-tender. Uterine fundus palpable at the umbilicus.
--- NOTE | 2020-04-11 15:37 | NUR ---
SVE closed/firm.
[2020-04-11 15:49] LABS: BILIRUBIN,URINE NEGATIVE (NEGATIVE); CLARITY,URINE CLOUDY; COLOR,URINE YELLOW; GLUCOSE, URINE (UA) NEGATIVE (NEGATIVE); KETONES,URINE NEGATIVE (NEGATIVE); LEUKOCYTE ESTERASE ,URINE NEGATIVE (NEGATIVE); NITRITE,URINE NEGATIVE (NEGATIVE); PH,URINE 7.5 (5-9); PROTEIN,URINE NEGATIVE (NEGATIVE)
[2020-04-11] MEDS ORDERED: ACET325T38 PO (15:55)
[2020-04-11] MEDS ORDERED: PREN1TAB79 PO (15:55)
[2020-04-11 15:56] LABS: AMORPHOUS SEDIMENT,UR MOD AMOR PHOSPHATE /LPF; BACTERIA,URINE TRACE /HPF; HYALINE CASTS, URINE RARE /LPF; SQUAMOUS EPITHELIAL CELL,UR 0-2 /HPF; WBC,URINE RARE /HPF
--- NOTE | 2020-04-11 16:27 | NUR ---
Dr. Mckoy notified of patient's arrival, complaints, UA, and exam. New orders received.
--- NOTE | 2020-04-11 16:39 | NUR ---
Discharge instructions reviewed with patient both written and verbally. Patient verbalizes understanding and questions answered.
--- NOTE | 2020-04-11 16:45 | NUR ---
Patient discharged at this time and ambulated from the unit with no signs or symptoms of distress noted.
--- NOTE | 2020-04-13 08:08 | Physician Query-Final Dx ---
GAGE CORRIGAN 04/13/20 0808: Clinic Account Progress/Dx Physician Query: Please give diagnosis Please include # weeks gestation Date of Service Apr 11, 2020 at 15:02 MARCIA JIMENEZ DO 04/14/20 0839: Clinic Account Progress/Dx DIAGNOSIS: Diagnosis 20wk GA abdominal pain GAGE CORRIGAN Apr 13, 2020 08:08 MARCIA JIMENEZ DO Apr 14, 2020 08:39
== END 2020-04-11 16:45 | disposition home or self-care (01) ==
LOC: LDRP 15:02 → WSo 15:02
PROVIDERS: ATTEND Family Medicine
DX: O26.892 Other specified pregnancy related conditions, second trimester (principal); R10.9 Unspecified abdominal pain; Z3A.20 20 weeks gestation of pregnancy
CPT/HCPCS: 81000

== ENCOUNTER 2020-05-01 07:14 | Day surgery (SDC) | payer MEDICAID ==
[~2020-05-01] VITALS: Ht 175.3 cm; Wt 69.4 kg
[2020-05-01] VITALS (12 sets, daily range): BP systolic 94–122; BP diastolic 56–77
[~2020-05-01 07:14] MED LIST changes: +ACET325T38 PO; +PREN1TAB79 PO
[2020-05-01] MEDS ORDERED: CLINDAMYCIN 600 MG/50 ML IVPB 50 ML IV ONE ×2 (07:30→10:34)
[2020-05-01] MEDS: LACTATED RINGERS 1,000 ML IV PRN ×2 (08:00→10:45)
--- NOTE | 2020-05-01 09:10 | Progress Note-Pre Operative ---
Pre-Operative Progress Note H&P Reviewed The H&P was reviewed, patient examined and no changes noted. Time Seen by Provider: 09:07 Date H&P Reviewed: May 01, 2020 Time H&P Reviewed: 09:07 Pre-Operative Diagnosis: Acute Choleycystitis with Cholelithiasis WHIT PENA DO May 01, 2020 09:10
[2020-05-01] MEDS ORDERED: LIDOCAINE/EPI 1%-1:200,000 (XYLOCAINE) 10 ML VIAL ONE (09:33)
[2020-05-01] MEDS ORDERED: ROCURONIUM 10 MG/ML 5 ML SYRINGE IV ONE (09:38)
[2020-05-01] MEDS ORDERED: proPOfol 200 MG/20 ML (DIPRIVAN) VIAL IV ONE (09:38)
[2020-05-01] MEDS ORDERED: LIDOCAINE PF 2% 5 ML (XYLOCAINE) VIAL ONE (09:38)
[2020-05-01] MEDS ORDERED: fentaNYL INJECTION 100 MCG/2 ML AMP ONE ×2 (09:38→11:25)
[2020-05-01] MEDS ORDERED: SUCCINYLCHOLINE INJ 100 MG/5 ML SYR/VIAL ONE (09:38)
[2020-05-01] MEDS ORDERED: ONDANSETRON 4 MG/2 ML (SDV) Z0FRAN ONE (09:38)
[2020-05-01] MEDS ORDERED: GLYCOPYRROLATE 0.2 MG/ML (ROBINUL) 2 ML VIAL ONE (09:39)
[2020-05-01] MEDS ORDERED: SEVOFLURANE (ULTANE) 15 ML INHAL SOLN ONE ×2 (09:39→11:14)
[2020-05-01] MEDS ORDERED: NEOSTIGMINE 3 MG/3 ML VIAL ONE ×2 (09:39→11:21)
[2020-05-01] MEDS ORDERED: ATROPINE INJ 0.4 MG/ML SDV ONE ×2 (09:54→10:27)
[2020-05-01] MEDS ORDERED: PHENYLEPHRINE 100 MCG/ML 10 ML (ANESTHESIA) SYR ONE (11:15)
--- NOTE | 2020-05-01 11:18 | Progress Note-Post Operative ---
Post-Operative Progess Note Surgeon (s)/Fuel Cell Repairer (s) Surgeon WHIT PENA DO Fuel Cell Repairer: Elsa Pre-Operative Diagnosis Acute Choleycystitis with Cholelithiasis Post-Operative Diagnosis same Procedure & Operative Findings Date of Procedure 05/01/20 Procedure Performed/Findings Lap freddie Anesthesia Type GET Estimated Blood Loss Estimated blood loss (mL): scant Specimens/Packing Specimens Removed GB and contents WHIT PENA DO May 01, 2020 11:18
[2020-05-01] MEDS ORDERED: ACHD5005 PO (11:19)
--- NOTE | 2020-05-01 11:20 | Discharge Inst-Surgical ---
Discharge Inst-Surgical Depart Medication/Instructions New, Converted or Re-Newed RX: RX Given to Pt/Family Patient Instructions Follow up Appt: Make appointment for 1 week. [phone] Instructions: No lifting greater than 20 pounds. No strenuous activity. May shower in 24 hours, no tub bath or soaking. Use incentive spirometer at home as directed. No Smoking Skin/Wound Care: May remove bandages in am. You need to leave the Dermabond on incision it will fall off on it's own. Symptoms to Report: Appetite Changes, Extremity Discoloration, Numbness/Tingling, Swelling Increased, Bleeding Excessive, Eyesight Changes, Pain Increased, Urine Color Change, Constipation(Persistent), Fever over 101 degree F, Pain/Pressure in chest, Urinating Difficulty, Cough Up/Vomit Blood, Heart Beat Irreg/Pounding, Pain/Pressure in jaw, Cramps in feet or legs, Lightheadedness, Pain/Pressure in shoulder, Diarrhea(Persistent), Memory Changes Suddenly, Questions/Concerns, Weight gain consecutive days, Dizziness/Fainting, Nausea/Vomiting, Shortness of Breath, Weight gain over 2 pounds If questions or concerns contact your physician Or seek help at emergency department. Activity Activity as Tolerated: Yes Activity Instructions: Avoid Stress to Incision Driving Instructions: No Driving/Refer to Diet Discharge Diet: Avoid Fatty Foods, Low Fat/Low Cholesterol Diet After 24 Hours: Clear Liquid if Nauseous If Any Problems/Questions/Issu: Contact Your Physician, Go to Emergency Room Skin/Wound Care Infection Signs and Symptoms: Increased Redness, Foul Odor of Wound, Increased Drainage, Skin Itchy or Has a Rash, Increased Swelling, Temperature Above 101 F Wound Care Comment: heating pad to shoulder or neck tonight for pain Bathing Instructions: Shower Stitches/[place]/Dermabond Dis: Dermabond Ice Pack: Ice On and Off Site WHIT PENA DO May 01, 2020 11:20
[2020-05-01] MEDS ORDERED: FAMO-119 PO (11:23)
--- NOTE | 2020-05-01 11:24 | Operative Report ---
Operative Report Date of Procedure/Surgery May 01, 2020 Surgeon (s) WHIT PENA DO Line Lead (s): Elsa Post-Operative Diagnosis same Procedure Performed Lap Mila Description of Procedure Anesthesia Type: General Estimated blood loss (mL): scant Specimen(s) collected/removed GB and contents Description of the Procedure PROCEDURE: Laparoscopic cholecystectomy COMPLICATIONS: None. PROCEDURE: The patient was taken to the operating suite and was prepped and draped in sterile fashion. A surgical pause was performed. Just superior to the umbilicus, a 12 mm incision was made. Dissection was taken down to the fascia, which was then scored and grasped with a Dariel and the abdomen was then entered. A 0 Vicryl suture was placed in a lmhrxr-ty-jzvwi fashion and a [place] trocar was placed and secured. Pneumoperitoneum was achieved. A 5mm trochar place in the subxyphoid and 2 in the right upper quadrant. The gallbladder was then grasped and elevated. Noted to have fluid around the gallbladder and adhesions to the gallbladder; which usually indicate previous cholecystitis attacks. The cystic duct, and cystic artery were then dissected out. Clips were then placed on the distal portion of the cystic duct and the proximal portion. The cystic duct was then transected. Clips were placed along the proximal and distal portion of the cystic artery which was then transected. Hook cautery was used to dissect the gallbladder from the gallbladder fossa achieving hemostasis. The gallbladder was placed in an Endobag and removed through the 12 mm trocar site. The abdomen was then reinspected. Copious amounts of irrigation were used to irrigate the abdomen and there were no signs of active bleeding. Hemostasis had been achieved. The 12 mm fascial defect was then closed with 0 Vicryl suture that had been placed in a xlrovw-qv-yrduc fashion. The abdomen was then desufflated, the trocars were removed. The abdomen was then washed and dried. The skin was then closed using 4-0 Monocryl in a subcuticular fashion. The abdomen was washed and dried and Skin Affix was place over incisions. Patient tolerated the procedure well without any complications and was taken to the recovery room in stable condition. Dr. Hunter assisted on this case helping to make incisions, close incisions, identify anatomy and hold anatomy out of the way. Findings of the Procedure Acute cholecystitis Allergies and Home Medications Allergies Coded Allergies: Penicillins (Unverified Adverse Reaction, Unknown, 8/28/20) ondansetron (Unverified Adverse Reaction, Unknown, 11/01/19) Uncoded Allergies: Silk tape (Adverse Reaction, Mild, rash, 11/01/19) Home Medications Acetaminophen 325 Mg Tablet, 1-2 TAB PO Q8H, (Reported) Hydrocodone Bit/Acetaminophen 1 Tab Tab, 1 TAB PO Q8H PRN for PAIN-MODERATE (5-7) Prescribed by: WHIT PENA on 05/01/20 1119 Vit W-Ca,Fe,FA(<1 mg) 1 Each Tablet, 1 EACH PO DAILY, (Reported) Patient Home Medication List Home Medication List Reviewed: Yes Copy Copies To 1: VANESSA BOSE MD, ERIC B DO May 01, 2020 11:24
[2020-05-01] MEDS ORDERED: diphenhydrAMINE 50 MG/ML INJ (BENADRYL) ONE (11:29)
--- NOTE | 2020-05-01 11:41 | Anesthesia-General Post-Op ---
General Patient Condition Mental Status/LOC: Same as Preop Cardiovascular: Satisfactory Nausea/Vomiting: Absent Respiratory: Satisfactory Pain: Controlled Complications: Absent Post Op Complications Complications None Follow Up Care/Instructions Patient Instructions None needed. Anesthesia/Patient Condition Patient Condition Patient is doing well, no complaints, stable vital signs, no apparent adverse anesthesia problems. No complications reported per nursing. JESUSITA ESPITIA CRNA May 01, 2020 11:41
[2020-05-01] MEDS ORDERED: morphine INJ 10 MG/ML 1ML (SYR OR VIAL) IVP ONE (11:45)
[2020-05-01] MEDS ORDERED: HYDROcodone/APAP 5 MG/325 MG (LORTAB) TAB ONE (13:48)
[2020-05-01] MEDS ORDERED: PROMETHAZINE INJ 25 MG/ML (PHENERGAN) AMP ONE (13:48)
[2020-05-01] MEDS ORDERED: PROMETHAZINE INJ 25 MG/ML (PHENERGAN) AMP IVP ONE (14:00)
[2020-05-01] MEDS ORDERED: HYDROcodone/APAP 5 MG/325 MG (LORTAB) TAB PO ONE (14:00)
== END 2020-05-01 14:40 | disposition home or self-care (01) ==
LOC: SDC 07:14
PROVIDERS: ATTEND Surgery
DX: K80.12 Calculus of gallbladder with acute and chronic cholecystitis without obstruction (principal); F32.9 Major depressive disorder, single episode, unspecified; K21.9 Gastro-esophageal reflux disease without esophagitis; Z79.899 Other long term (current) drug therapy; Z88.0 Allergy status to penicillin; Z91.048 Other nonmedicinal substance allergy status; Z88.8 Allergy status to other drugs, medicaments and biological substances; Z20.822 Contact with and (suspected) exposure to COVID-19
CPT/HCPCS: 47562; 87081; U0002; 87635; 88304

== ENCOUNTER 2020-05-14 09:55 | Emergency (ER) | payer MEDICAID ==
[~2020-05-14] VITALS: Ht 175.2 cm; Wt 71.2 kg
[~2020-05-14 09:55] MED LIST changes: +ACHD5005 PO; +FAMO-119 PO
[2020-05-14 10:02] VITALS: BP 103/60
--- NOTE | 2020-05-14 10:23 | ED Lower Extremity ---
General Chief Complaint: Lower Extremity Stated Complaint: LEFT FOOT INJ Source: patient Exam Limitations: no limitations History of Present Illness Date Seen by Provider: May 14, 2020 Time Seen by Provider: 10:15 Initial Comments 25-year-old female presents with left foot pain and injury this morning. States she was in her kitchen, slipped and fell, knocked over a chair and the chair landed on her left foot. Now having pain with weightbearing, pain with movement and pain to touch. Denies any previous injury to her left lower extremity. Denies any other pain or injury of concern today. Patient is currently 25 weeks . Onset: just prior to arrival Allergies and Home Medications Allergies Coded Allergies: Penicillins (Unverified Adverse Reaction, Unknown, 11/01/19) ondansetron (Unverified Adverse Reaction, Unknown, 11/01/19) Uncoded Allergies: Silk tape (Adverse Reaction, Mild, rash, 11/01/19) Home Medications Famotidine 20 Mg Tablet, 20 MG PO DAILY, (Reported) Hydrocodone Bit/Acetaminophen 1 Tab Tab, 1 TAB PO Q8H PRN for PAIN-MODERATE (5- 7) Prescribed by: WHIT PENA on 05/01/20 1119 Vit W-Ca,Fe,FA(<1 mg) 1 Each Tablet, 1 EACH PO DAILY, (Reported) Patient Home Medication List Home Medication List Reviewed: Yes Review of Systems Constitutional: no symptoms reported; No dizziness, No fever, No malaise, No weakness EENTM: no symptoms reported Respiratory: no symptoms reported Cardiovascular: no symptoms reported Musculoskeletal: see HPI; No back pain, No joint pain, No joint swelling; other (left foot pain/injury) Skin: No change in color, No lesions, No lumps, No rash Past Rhveqew-Wowapf-Qdpqig Hx Past Med/Social Hx: Reviewed Nursing Past Med/Soc Hx Patient Social History 2nd Hand Smoke Exposure: No Recent Hopitalizations: No Immunizations Up To Date PED Vaccines UTD: No Seasonal Allergies Seasonal Allergies: No Past Medical History Surgeries: Yes (C/S x 2) Adenoidectomy, Section, Tonsillectomy Respiratory: No Cardiac: No Neurological: No Genitourinary: No Gastrointestinal: No Musculoskeletal: No Endocrine: No HEENT: No Cancer: No Psychosocial: No Integumentary: No Blood Disorders: No Physical Exam Vital Signs Vital Signs - First Documented 05/14/20 10:02 Temp 37.3 Pulse 114 Resp 16 B/P (MAP) 103/60 (74) Pulse Ox 97 O2 Delivery Room Air Capillary Refill : Height, Weight, BMI Height: '" Weight: lbs. oz. kg; 22.58 BMI Method: General Appearance: WD/WN, no apparent distress Hips: bilateral hip non-tender, bilateral hip normal inspection, bilateral hip normal range of motion Legs: bilateral leg non-tender, bilateral leg normal inspection, bilateral leg normal range of motion, bilateral leg no evidence of injury Knees: bilateral knee non-tender, bilateral knee normal inspection, bilateral knee normal range of motion, bilateral knee no evidence of injury Ankles: bilateral ankle non-tender, bilateral ankle normal inspection, bilateral ankle normal range of motion, bilateral ankle no evidence of injury Feet: right foot non-tender; bilateral foot normal inspection; left foot bone tenderness, left foot limited range of motion, left foot pain, left foot soft tissue tenderness Neurologic/Psychiatric: no motor/sensory deficits Skin: normal color, warm/dry generalized tenderness to light palpation of entire medial foot- LEFT Progress/Results/Core Measures Results/Orders My Orders Orders - KESHAV RIVERA DO Foot 3 View Left (05/14/20 10:17) Vital Signs/I&O 05/14/20 10:02 Temp 37.3 Pulse 114 Resp 16 B/P (MAP) 103/60 (74) Pulse Ox 97 O2 Delivery Room Air Diagnostic Imaging Diagonstic Imaging: Xray Comments Date of Exam:05/14/20 FOOT 3 VIEW LEFT EXAMINATION: Left foot radiographs, 3 views. COMPARISON: None. HISTORY: 25-year-old female, left foot pain. Fall this morning. FINDINGS: There is a normal variant os peroneum. There is no identified acute fracture. There is no radiopaque foreign body. There is no periosteal reaction. The joint spaces are well preserved. There is no prominent focal soft tissue swelling. IMPRESSION: Unremarkable radiographs of the left foot. Dictated on workstation # [id number] Dict: 05/14/20 1043 Trans: 05/14/20 1047 [facility] [id number] Interpreted by: AUGUSTINE LEUNG MD Electronically signed by: Departure Impression Primary Impression: Contusion of foot Qualified Codes: S90.32XA - Contusion of left foot, initial encounter Disposition: HOME, SELF-CARE Condition: Stable Departure-Patient Inst. Decision time for Depature: 10:22 Referrals: VANESSA BOSE MD (PCP/Family) Primary Care Physician Patient Instructions: Contusion (DC) Add. Discharge Instructions: Follow up with your Primary Care Provider in 1 week if not improving, sooner if worse. All discharge instructions reviewed with patient and/or family. Voiced understanding. KESHAV RIVERA DO May 14, 2020 10:22
--- NOTE | 2020-05-14 10:47 | Diagnostic Imaging Report ---
EXAMINATION: Left foot radiographs, 3 views. COMPARISON: None. HISTORY: 25-year-old female, left foot pain. Fall this morning. FINDINGS: There is a normal variant os peroneum. There is no identified acute fracture. There is no radiopaque foreign body. There is no periosteal reaction. The joint spaces are well preserved. There is no prominent focal soft tissue swelling. IMPRESSION: Unremarkable radiographs of the left foot. Dictated by: Dictated on workstation # [id number]
== END 2020-05-14 10:43 | disposition home or self-care (01) ==
LOC: EDUNIT# 09:55 → ER FS 09:59
DX: O9A.212 Injury, poisoning and certain other consequences of external causes complicating pregnancy, second trimester (principal); S90.32XA Contusion of left foot, initial encounter; Z88.0 Allergy status to penicillin; Z88.8 Allergy status to other drugs, medicaments and biological substances; Z91.048 Other nonmedicinal substance allergy status; Z3A.25 25 weeks gestation of pregnancy; W01.190A Fall on same level from slipping, tripping and stumbling with subsequent striking against furniture, initial encounter; W20.8XXA Other cause of strike by thrown, projected or falling object, initial encounter
CPT/HCPCS: 73630

== ENCOUNTER 2020-06-07 10:37 | Outpatient (CLI) | payer MEDICAID ==
[~2020-06-07] VITALS: Ht 175.3 cm; Wt 76.1 kg
[2020-06-07 10:55] VITALS: BP 106/62
[2020-06-07] MEDS ORDERED: NS IV 1000 ML 1,000 ML ONE (12:47)
[2020-06-07] MEDS ORDERED: NS IV 1000 ML 1,000 ML IV SCH (14:15)
[2020-06-07 14:52] LABS: BILIRUBIN,URINE NEGATIVE (NEGATIVE); CLARITY,URINE CLOUDY; COLOR,URINE YELLOW; GLUCOSE, URINE (UA) NEGATIVE (NEGATIVE); KETONES,URINE NEGATIVE (NEGATIVE); LEUKOCYTE ESTERASE ,URINE TRACE (NEGATIVE); NITRITE,URINE NEGATIVE (NEGATIVE); PROTEIN,URINE NEGATIVE (NEGATIVE)
[2020-06-07 15:25] VITALS: BP 102/62
[2020-06-07 15:25] LABS: AMORPHOUS SEDIMENT,UR FEW AMOR URATES /LPF; BACTERIA,URINE NEGATIVE /HPF
--- NOTE | 2020-06-08 07:58 | Physician Query-Final Dx ---
GAGE CORRIGAN 06/08/20 0758: Clinic Account Progress/Dx Physician Query: Please give diagnosis Please include # weeks gestation Date of Service Jun 07, 2020 at 10:37 MARCIA JIMENEZ DO 06/08/20 1557: Clinic Account Progress/Dx DIAGNOSIS: Diagnosis 28 week GA rodrigo GAGE CORRIGAN Jun 08, 2020 07:58 MARCIA JIMENEZ DO Jun 08, 2020 15:57
== END 2020-06-07 16:05 | disposition home or self-care (01) ==
LOC: LDRP 10:37 → WSo 10:37
PROVIDERS: ATTEND Family Medicine
DX: O26.893 Other specified pregnancy related conditions, third trimester (principal); Z3A.28 28 weeks gestation of pregnancy
CPT/HCPCS: 81000; 96360; G0463; 99213

== ENCOUNTER 2020-08-07 12:15 | Outpatient (CLI) | payer MEDICAID ==
[~2020-08-07] VITALS: Ht 175.3 cm; Wt 82.6 kg
[2020-08-07 12:30] VITALS: BP 111/62
[2020-08-07] MEDS ORDERED: HYDR25CA PO (12:50)
--- NOTE | 2020-08-10 07:57 | Physician Query-Final Dx ---
Clinic Account Progress/Dx Physician Query: Please give diagnosis Please include # weeks gestation Date of Service Aug 07, 2020 at 12:15 GAGE CORRIGAN Aug 10, 2020 07:57
== END 2020-08-07 13:10 | disposition home or self-care (01) ==
LOC: WSo 12:15 → LDRP 12:16 → WSo 13:10
PROVIDERS: ATTEND Family Medicine
DX: O42.02 Full-term premature rupture of membranes, onset of labor within 24 hours of rupture (principal); Z3A.37 37 weeks gestation of pregnancy
CPT/HCPCS: 99214

== ENCOUNTER 2020-08-14 05:38 | Outpatient (CLI) | payer MEDICAID ==
[~2020-08-14] VITALS: Ht 175.3 cm; Wt 82.7 kg
[~2020-08-14 05:38] MED LIST changes: +HYDR25CA PO
== END 2020-08-14 10:59 | disposition home or self-care (01) ==
LOC: PREOP 05:38
PROVIDERS: ATTEND Obstetrics & Gynecology
DX: Z01.818 Encounter for other preprocedural examination (principal)

== ENCOUNTER 2020-08-15 13:09 | Outpatient (CLI) | payer MEDICAID ==
[~2020-08-15] VITALS: Ht 175.3 cm; Wt 83.1 kg
[2020-08-15 13:30] VITALS: BP 128/70
[2020-08-15 14:03] LABS: BILIRUBIN,URINE NEGATIVE (NEGATIVE); CLARITY,URINE CLEAR; COLOR,URINE YELLOW; GLUCOSE, URINE (UA) NEGATIVE (NEGATIVE); KETONES,URINE TRACE (NEGATIVE); LEUKOCYTE ESTERASE ,URINE TRACE (NEGATIVE); NITRITE,URINE NEGATIVE (NEGATIVE); PROTEIN,URINE NEGATIVE (NEGATIVE)
[2020-08-15 14:20] LABS: BACTERIA,URINE TRACE /HPF
[2020-08-15 14:26] LABS: BASOPHILS % (AUTO) 0 % (0-10); EOSINOPHILS # (AUTO) 0.2 10^3/uL (0.0-0.3); EOSINOPHILS % (AUTO) 2 % (0-10); HEMATOCRIT 28 % (35-52); HEMOGLOBIN 9.5 g/dL (11.5-16.0); LYMPHOCYTES # (AUTO) 1.6 10^3/uL (1.0-4.0); LYMPHOCYTES % (AUTO) 13 % (12-44); MEAN CORPUSCULAR HEMOGLOBIN 29 pg (25-34); MEAN CORPUSCULAR HGB CONC 34 g/dL (32-36); MEAN CORPUSCULAR VOLUME 85 fL (80-99); MEAN PLATELET VOLUME 9.8 fL (9.0-12.2); MONOCYTES # (AUTO) 1.3 10^3/uL (0.0-1.0); MONOCYTES % (AUTO) 10 % (0-12); NEUTROPHILS % (AUTO) 74 % (42-75); PLATELET COUNT 255 10^3/uL (130-400); WHITE BLOOD COUNT 12.3 10^3/uL (4.3-11.0)
[2020-08-15] MEDS ORDERED: LACTATED RINGERS 1,000 ML IV ONE (16:29)
[2020-08-15 17:09] VITALS: BP 108/58
[2020-08-15] MEDS ORDERED: LACTATED RINGERS 1,000 ML IV SCH (18:45)
--- NOTE | 2020-08-17 07:40 | Physician Query-Final Dx ---
GAGE CORRIGAN 08/17/20 0740: Clinic Account Progress/Dx Physician Query: Please give diagnosis Please include # weeks gestation Date of Service Aug 15, 2020 at 13:09 CHU WATSON MD 08/19/20 0731: Clinic Account Progress/Dx DIAGNOSIS: Diagnosis 1. IUP at 39 weeks gestation 2. Abdominal pain, non-labor GAGE CORRIGAN Aug 17, 2020 07:40 CHU WATSON MD Aug 19, 2020 07:31
== END 2020-08-15 18:20 | disposition home or self-care (01) ==
LOC: LDRP 13:09 → WSo 13:09
PROVIDERS: ATTEND Family Medicine
DX: O26.899 Other specified pregnancy related conditions, unspecified trimester (principal); Z3A.00 Weeks of gestation of pregnancy not specified
CPT/HCPCS: 81000; 85025; 87088; 96360; G0463; 36415; 99213

== ENCOUNTER 2020-08-21 05:57 | Inpatient (IN) | payer MEDICAID ==
[2020-08-21] VITALS (8 sets, daily range): BP systolic 108–132; BP diastolic 60–77
[~2020-08-21] VITALS: Ht 175.3 cm; Wt 83.1 kg
[2020-08-21] MEDS ORDERED: FAMOTIDINE 20MG/2ML IV (PEPCID) ONE (06:07)
[2020-08-21] MEDS ORDERED: METOCLOPRAMIDE INJ 10 MG/2 ML (REGLAN) IV ONE (06:15)
[2020-08-21] MEDS ORDERED: CITRIC ACID/SOB CIT (BICITRA) 30 ML UDC PO ONE (06:15)
[2020-08-21] MEDS ORDERED: LACTATED RINGERS 1,000 ML IV PRN ×2 (06:15)
[2020-08-21] MEDS ORDERED: ceFAZolin INJECTION 1,000 MG in WATER (STERILE) FOR INJECTION 10 ML IV ONE (06:15)
[2020-08-21] MEDS ORDERED: FAMOTIDINE 20MG/2ML IV (PEPCID) IV ONE (06:15)
[2020-08-21] MEDS ORDERED: HYDROmorphone 2 MG/ML VIAL (DILAUDID) ONE (06:26)
[2020-08-21 06:28] LABS: BASOPHILS # (AUTO) 0.1 10^3/uL (0.0-0.1); BASOPHILS % (AUTO) 0 % (0-10); EOSINOPHILS # (AUTO) 0.1 10^3/uL (0.0-0.3); EOSINOPHILS % (AUTO) 1 % (0-10); HEMATOCRIT 31 % (35-52); HEMOGLOBIN 10.5 g/dL (11.5-16.0); LYMPHOCYTES # (AUTO) 1.6 10^3/uL (1.0-4.0); LYMPHOCYTES % (AUTO) 7 % (12-44); MEAN CORPUSCULAR HEMOGLOBIN 28 pg (25-34); MEAN CORPUSCULAR HGB CONC 34 g/dL (32-36); MEAN CORPUSCULAR VOLUME 83 fL (80-99); MEAN PLATELET VOLUME 9.5 fL (9.0-12.2); MONOCYTES # (AUTO) 1.6 10^3/uL (0.0-1.0); MONOCYTES % (AUTO) 7 % (0-12); NEUTROPHILS # (AUTO) 17.9 10^3/uL (1.8-7.8); NEUTROPHILS % (AUTO) 83 % (42-75); PLATELET COUNT 263 10^3/uL (130-400); WHITE BLOOD COUNT 21.5 10^3/uL (4.3-11.0)
[2020-08-21] MEDS ORDERED: HYDROmorphone 2 MG/ML VIAL (DILAUDID) IV ONE ×2 (06:30→09:00)
[2020-08-21] MEDS ORDERED: fentaNYL INJ 100 MCG/2 ML AMP ONE (06:56)
[2020-08-21] MEDS ORDERED: ROPIVACAINE 5MG/ML 30ML VIAL ONE (06:56)
[2020-08-21] MEDS ORDERED: OXYTOCIN PRE-MIX DRIP 1,000 ML IV ONE (06:56)
--- NOTE | 2020-08-21 07:18 | History & Physical-OB ---
OB - Chief Complaint & HPI Date/Time Date of Admission: Date of Admission: Aug 21, 2020 at 05:57 Date seen by a Provider: Aug 21, 2020 Time Seen by a Provider: 07:05 Chief Complaint/History OB-Reason for Admission/Chief: Section Hx : 7 Hx Para: 2 Expected Date of Delivery: Aug 27, 2020 Gestational Age in Weeks: 39 Gestational Age in Days: 1 Indication for : desires repeat Admission Nurse Assessment Rev: Yes History of Labs See [facility] records Allergies and Home Medications Allergies Coded Allergies: Penicillins (Unverified Adverse Reaction, Unknown, 11/01/19) ondansetron (Unverified Adverse Reaction, Unknown, 11/01/19) Uncoded Allergies: Silk tape (Adverse Reaction, Mild, rash, 11/01/19) Home Medications Famotidine 20 Mg Tablet, 20 MG PO DAILY, (Reported) Last Action: Reviewed Vit W-Ca,Fe,FA(<1 mg) 1 Each Tablet, 1 EACH PO DAILY, (Reported) Last Action: Reviewed Patient Home Medication List Home Medication List Reviewed: Yes OB - History Hx of Present Care: Yes Ultrasounds: Normal mid trimester US Obstetrical Complications: None Medical Complications: None Patient Past Medical History n/a Social History/Family History 2nd Hand Smoke Exposure: Yes OB - Admission Exam Physical Exam Vitals: Vital Signs 08/21/20 06:03 Temp 36.9 Pulse 100 Resp 18 Pulse Ox 98 O2 Delivery Room Air HEENT: NCAT Heart: Rhythm Normal Lungs: Clear Abdomen: Gravid Extremities: Normal Reflexes: Normal Cervical Dilatation: 3cm Effacement: 75% Station: -1 Membranes: Intact Heart Rate: 130's Accelerations: Accelerations Present Decelerations: No Decelerations Short Term Variability: Present Retirement Variability: Average (6-25) Contractions on Admission: < 5 Minutes Apart Intensity: Firm Labs Laboratory Tests Test 08/21/20 06:00 Range/Units White Blood Count 21.5 H 4.3-11.0 10^3/uL Red Blood Count 3.71 L 3.80-5.11 10^6/uL Hemoglobin 10.5 L 11.5-16.0 g/dL Hematocrit 31 L 35-52 % Mean Corpuscular Volume 83 80-99 fL Mean Corpuscular Hemoglobin 28 25-34 pg Mean Corpuscular Hemoglobin Concent 34 32-36 g/dL Red Cell Distribution Width 15.6 H 10.0-14.5 % Platelet Count 263 130-400 10^3/uL Mean Platelet Volume 9.5 9.0-12.2 fL Immature Granulocyte % (Auto) 1 % Neutrophils (%) (Auto) 83 H 42-75 % Lymphocytes (%) (Auto) 7 L 12-44 % Monocytes (%) (Auto) 7 0-12 % Eosinophils (%) (Auto) 1 0-10 % Basophils (%) (Auto) 0 0-10 % Neutrophils # (Auto) 17.9 H 1.8-7.8 10^3/uL Lymphocytes # (Auto) 1.6 1.0-4.0 10^3/uL Monocytes # (Auto) 1.6 H 0.0-1.0 10^3/uL Eosinophils # (Auto) 0.1 0.0-0.3 10^3/uL Basophils # (Auto) 0.1 0.0-0.1 10^3/uL Immature Granulocyte # (Auto) 0.3 H 0.0-0.1 10^3/uL OB - Assessment/Plan/Diagnosis Assessment Assessment: section Admission Dx 25 yo @ 39 weeks Previous Leukocytosis Poor dentation Admission Status: Inpatient Order (span 2 midnights) Reason for Inpatient Admission: Repeat Plan Plan: Section JEANA GHOSH DO Aug 21, 2020 07:18
[2020-08-21] MEDS ORDERED: ceFAZolin 2 GM IV Premixed 50 ML ONE (07:19)
--- NOTE | 2020-08-21 07:24 | Discharge Inst-Women's Service ---
Discharge Inst-Women's Serv Depart Medication/Instructions New, Converted or Re-Newed RX: RX on Chart Final Diagnosis POD 2 RLTCS Problems Reviewed?: Yes Consults/Follow Up Additional Follow Up: Yes Orders/Referrals Dr. Chacon in 7-10 days and in 6 weeks Activity Activity: Activity as Tolerated Driving Instructions: No Driving for 1 Week NO SMOKING: NO SMOKING Nothing Inside Vagina: No Douching, No [place], No Tampons Diet Discharge Diet: No Restrictions Symptoms to Report to : Bleeding Excessive, Pain Increased, Fever Over 101 Degrees F, Vaginal Bleeding Increase, Questions/Concerns For Any Problems or Questions: Contact Your Physician Skin/Wound Care Infection Signs and Symptoms: Increased Redness, Foul Odor of Wound, Increased Drainage, Skin Itchy or Has a Rash, Increased Swelling, Temperature Above 101 F Operative Area Clean and Dry: Keep Incision Clean/Dry Stitches/Mercy/Dermabond: Dermabond, Care of Stitches Bathing Instructions: JEANA Coburn DO Aug 21, 2020 07:24
[2020-08-21] MEDS ORDERED: IBUP-844 PO (07:25)
[2020-08-21] MEDS ORDERED: DCS100C PO (07:25)
[2020-08-21] MEDS ORDERED: ACHD5005 PO (07:25)
[2020-08-21] MEDS ORDERED: PROMETHAZINE INJ 25 MG/ML (PHENERGAN) AMP IVP PRN (07:30)
[2020-08-21] MEDS ORDERED: TETANUS,DIPTH,PERTUSS P/F (BOOSTRIX) 0.5 ML VIAL IM SCH (07:30)
[2020-08-21] MEDS ORDERED: MEASLES,MUMPS,RUBELLA 1 EA INJ SC SCH (07:30)
[2020-08-21 07:47] LABS: BILIRUBIN,URINE NEGATIVE (NEGATIVE); CLARITY,URINE CLEAR; COLOR,URINE DARK YELLOW; GLUCOSE, URINE (UA) NEGATIVE (NEGATIVE); KETONES,URINE 2+ (NEGATIVE); LEUKOCYTE ESTERASE ,URINE 1+ (NEGATIVE); NITRITE,URINE NEGATIVE (NEGATIVE); PROTEIN,URINE NEGATIVE (NEGATIVE)
[2020-08-21] MEDS: OXYTOCIN PRE-MIX DRIP 500 ML IV SCH ×2 (07:57→12:42)
[2020-08-21 08:00] LABS: BACTERIA,URINE MODERATE /HPF
[2020-08-21 08:01] LABS: AMPHETAMINE SCREEN, URINE NEGATIVE (NEGATIVE); BARBITURATE SCREEN URINE NEGATIVE (NEGATIVE); BENZODIAZEPINES SCREEN URINE NEGATIVE (NEGATIVE); CANNABINOID SCREEN, URINE NEGATIVE (NEGATIVE); COCAINE SCREEN URINE NEGATIVE (NEGATIVE); METHADONE STAT NEGATIVE (NEGATIVE); METHAMPHETAMINE SCREEN URINE S NEGATIVE (NEGATIVE); OPIATE SCREEN URINE POSITIVE (NEGATIVE); TRICYCLIC ANTIDEPRESSANTS SCRE NEGATIVE (NEGATIVE)
[2020-08-21 08:02] LABS: OXYCODONE STAT NEGATIVE (NEGATIVE); PROPOXYPHENE STAT NEGATIVE (NEGATIVE)
[2020-08-21] MEDS: KETOROLAC 30 MG/ML VIAL IV SCH ×3 (08:56→21:13)
[2020-08-21] MEDS: HYDROcodone/APAP 5 MG/325 MG (LORTAB) TAB PO PRN ×3 (09:42→23:08)
[2020-08-21] MEDS: DOCUSATE SODIUM 100 MG (COLACE) CAP PO SCH ×2 (09:45→21:13)
[2020-08-21] MEDS ORDERED: CATHETER FLUSH 10 ML SYR IV SCH (14:00)
--- NOTE | 2020-08-21 14:00 | OPERATIVE REPORT ---
DATE OF SERVICE: PREOPERATIVE DIAGNOSES: 1. A 25-year-old G7, P2 at 39 weeks gestation. 2. Previous section x2. 3. Acute leukocytosis. POSTOPERATIVE DIAGNOSES: 1. A 25-year-old G7, P2 at 39 weeks gestation. 2. Previous section x2. 3. Acute leukocytosis. PROCEDURE PERFORMED: Repeat low transverse section. SURGEON: Thomas Ghosh DO. ANESTHESIA: Spinal. ESTIMATED BLOOD LOSS: 600 mL. URINE OUTPUT: 75 mL clear at the end of the procedure. FLUIDS: 1000 mL lactated Ringer's solution. FINDINGS: A live female weighing 8 pounds 2 ounces, Apgars of 9 and 9. Grossly normal appearing uterus, bilateral fallopian tubes and ovaries. SPECIMEN SENT: Placenta. INDICATIONS FOR PROCEDURE: This 25-year-old female is the patient, who was scheduled for this morning; however, she did present in what appeared to be in early active labor. She was 3 cm dilated, chance somewhat regularly and significantly uncomfortable. She was given a dose of IV pain medication to control her pain while we prepped her for . Again, in the preoperative area, I reviewed the risks with the patient of including risk of bleeding, infection, damage to surrounding structures including, but not limited to bowel, bladder, ureter, kidneys, possible need for operation, postoperative complications that may occur, risk from anesthesia, hospital stay, possible need for blood transfusion, risk to the and even . After everything was discussed with the patient in detail, consent was obtained in the preoperative area and the patient was taken to the operating room. OPERATIVE REPORT IN DETAIL: Once in the operating room, spinal analgesia was found to be adequate, she was placed in a supine position with leftward tilt, prepped and draped in a normal sterile fashion. A timeout was performed and anesthesia was tested. I then made a Pfannenstiel skin incision through the previously existing scar using knife and carried down to the underlying fascia using Bovie cautery. The fascial incision was extended laterally using Bovie cautery. Superior aspect of the fascial incision was then grasped with Dariel clamps, tented up and dissected off the underlying rectus muscles. The inferior aspect of fascial incision was then grasped with Dariel clamps, tented up and dissected off the underlying rectus muscles. Rectus muscles were then dissected down the midline using sharp dissection, which exposed the peritoneum, which I entered bluntly and extended using blunt traction. Tariq ring retractor was placed in the peritoneal incision, which offers excellent lateral sidewall retraction. I identified the lower uterine segment, which was found to be thinned out. I made a low transverse incision to the vesicouterine peritoneum and bluntly dissected off the lower uterine segment, creating a bladder flap. I then proceeded with my myotomy until membranes were visualized, at which point, I extended the uterine incision laterally and superiorly using bandage scissors. Amniotomy was performed, in the process of doing this, clear fluid was noted. was found in vertex presentation. With gentle fundal pressure, the 's head was elevated up the incision where it was delivered through the incision. The nares and oropharynx were bulb suctioned. Anterior and posterior shoulders were delivered. The infant was then brought to the operative field. With the cord doubly clamped and cut, was handed off to waiting nurses in attendance. Cord blood was collected, 3-vessel cord with intact placenta was delivered spontaneously thereafter. IV Pitocin was initiated to facilitate uterine contraction. Uterine fundus became firmer by manual massage. The uterus was then exteriorized and cleared of all endometrial clots and debris. I then proceeded with closing the uterine incision using 0 Vicryl suture in running locked fashion. Second layer of imbricating 0 Monocryl was placed. Excellent hemostasis was noted after doing this. I then placed the uterus back in the pelvis and copiously irrigated the pelvis using normal saline. Once again, there was no active bleeding noted from any of my dissection planes. I placed an Interceed antiadhesive over my low transverse incision. I removed the Tariq ring retractor and proceeded with closing the peritoneum using 3-0 Vicryl suture in a running fashion. The rectus muscle reapproximated using 3-0 Vicryl suture in an interrupted fashion. The fascia was reapproximated using 0 Vicryl suture in a running fashion. The skin was reapproximated using 4-0 Monocryl running subcuticular. Dermabond was applied to the incision and sterile dressing with adhesive white tape. The patient tolerated the procedure well and was taken to the recovery area in a stable condition. Lap and sponge counts was correct at the end of the procedure. Instrument count was correct as well. Two grams of Ancef given preoperatively for infection prophylaxis. Job ID: [id number] DocumentID: [id number] Dictated Date: 08/21/2020 08:38:35 Folder Seamer Automatic Date: 08/21/2020 13:59:17 Dictated By: THOMAS GHOSH DO
[2020-08-21] MEDS: METOCLOPRAMIDE 10 MG (REGLAN) TAB PO SCH ×2 (15:25→21:13)
[2020-08-22 03:30] VITALS: BP 128/62
[2020-08-22] MEDS: METOCLOPRAMIDE 10 MG (REGLAN) TAB PO SCH ×4 (03:46→21:58)
[2020-08-22] MEDS: KETOROLAC 30 MG/ML VIAL IV SCH (03:46)
[2020-08-22 06:28] LABS: BASOPHILS # (AUTO) 0.1 10^3/uL (0.0-0.1); BASOPHILS % (AUTO) 0 % (0-10); EOSINOPHILS # (AUTO) 0.4 10^3/uL (0.0-0.3); EOSINOPHILS % (AUTO) 2 % (0-10); HEMATOCRIT 26 % (35-52); HEMOGLOBIN 8.4 g/dL (11.5-16.0); LYMPHOCYTES # (AUTO) 1.7 10^3/uL (1.0-4.0); LYMPHOCYTES % (AUTO) 10 % (12-44); MEAN CORPUSCULAR HEMOGLOBIN 28 pg (25-34); MEAN CORPUSCULAR HGB CONC 32 g/dL (32-36); MEAN CORPUSCULAR VOLUME 86 fL (80-99); MEAN PLATELET VOLUME 9.6 fL (9.0-12.2); MONOCYTES # (AUTO) 1.4 10^3/uL (0.0-1.0); MONOCYTES % (AUTO) 8 % (0-12); NEUTROPHILS # (AUTO) 14.3 10^3/uL (1.8-7.8); NEUTROPHILS % (AUTO) 79 % (42-75); PLATELET COUNT 256 10^3/uL (130-400); WHITE BLOOD COUNT 18.1 10^3/uL (4.3-11.0)
[2020-08-22 07:10] LABS: EOSINOPHILS % (MANUAL) 2 %; HYPOCHROMASIA SLIGHT; LYMPHOCYTES % (MANUAL) 10 %; METAMYELOCYTES % 1 %; MONOCYTES % (MANUAL) 4 %; NEUTROPHILS % (MANUAL) 83 %
[2020-08-22] MEDS: HYDROcodone/APAP 5 MG/325 MG (LORTAB) TAB PO PRN ×3 (07:51→23:50)
[2020-08-22 08:00] VITALS: BP 118/70
--- NOTE | 2020-08-22 08:36 | Postpartum Progress Note ---
Note Note Day # 1 Subjective: Patient is without complaints. Ambulating, voiding. Tolerating a regular diet without nausea or vomiting. Normal lochia. Pain is well controlled with oral pain medications. Objective: Physical Exam: General - Alert and oriented, no apparent distress Abdomen - Soft, appropriately tender to palpation, non-distended, fundus firm at umbilicus Extremities - no edema, negative Umang's bilaterally Incision- c/d/i Assessment: POD 1 RLTCS Acute blood loss anemia Plan: Routine care. Encourage breast feeding. Encourage ambulation. Ferrous sulfate supplementation. Plan for discharge tomorrow Vitals - Labs Vital Signs - I&O Vital Signs Date Time Temp Pulse Resp B/P (MAP) Pulse Ox O2 Delivery O2 Flow Rate FiO2 08/22/20 03:30 36.2 81 16 128/62 (84) 99 Room Air 08/21/20 23:56 36.4 84 16 108/61 (77) 97 Room Air 08/21/20 20:58 36.0 85 16 113/66 (82) 99 Room Air 08/21/20 15:21 37.5 83 18 121/68 (85) 98 Room Air 08/21/20 11:04 37.3 86 18 118/60 (79) 98 Room Air 08/21/20 09:15 Room Air 08/21/20 09:15 37.3 18 110/65 (80) 97 Room Air 08/21/20 09:00 Room Air 08/21/20 09:00 37.3 18 115/67 (83) 97 Room Air 08/21/20 08:45 Room Air 08/21/20 08:45 37.0 18 110/60 (77) 97 Room Air I & O 08/22/20 07:00 Intake Total 3950 ml Output Total 1275 ml Balance 2675 ml Labs Laboratory Tests 08/22/20 06:18: White Blood Count 18.1H, Red Blood Count 3.02L, Hemoglobin 8.4L, Hematocrit 26L, Mean Corpuscular Volume 86, Mean Corpuscular Hemoglobin 28, Mean Corpuscular Hemoglobin Concent 32, Red Cell Distribution Width 15.9H, Platelet Count 256, Mean Platelet Volume 9.6, Immature Granulocyte % (Auto) 1, Neutrophils (%) (Auto) 79H, Lymphocytes (%) (Auto) 10L, Monocytes (%) (Auto) 8, Eosinophils (%) (Auto) 2, Basophils (%) (Auto) 0, Neutrophils # (Auto) 14.3H, Lymphocytes # (Auto) 1.7, Monocytes # (Auto) 1.4H, Eosinophils # (Auto) 0.4H, Basophils # (Auto) 0.1, Immature Granulocyte # (Auto) 0.2H, Neutrophils % (Manual) 83, Lymphocytes % (Manual) 10, Monocytes % (Manual) 4, Eosinophils % (Manual) 2, Metamyelocytes % 1, Hypochromasia SLIGHT Microbiology 08/21/20 MRSA Screen - Final, Complete MRSA not isolated JEANA GHOSH DO Aug 22, 2020 08:36
[2020-08-22] MEDS: IBUPROFEN 600 MG (MOTRIN) TAB PO SCH ×3 (09:43→21:58)
[2020-08-22] MEDS: DOCUSATE SODIUM 100 MG (COLACE) CAP PO SCH ×2 (09:43→21:58)
--- NOTE | 2020-08-22 09:53 | Anesthesia-Regional Post-Op ---
Regional Patient Condition Mental Status: Alert, Oriented x3 Circulation: Same as Pre-Op Headache: Absent Sensation: Full Recovery Motor Block: Absent Post Op Complications Complications None Follow Up Care/Instructions Patient Instructions None needed. Anesthesia/Patient Condition Patient is doing well, no complaints, stable vital signs, no apparent adverse anesthesia problems. No complications reported per nursing. D/C home per [facility] Criteria: No KAR ALLEN HAND ORNAMENT MAKER Aug 22, 2020 09:53
[2020-08-22 12:45] VITALS: BP 110/70
[2020-08-22 16:20] VITALS: BP 115/69
[2020-08-22 22:00] VITALS: BP 111/59
[2020-08-23] MEDS: METOCLOPRAMIDE 10 MG (REGLAN) TAB PO SCH ×2 (03:54→09:53)
[2020-08-23] MEDS: IBUPROFEN 600 MG (MOTRIN) TAB PO SCH ×2 (03:54→09:54)
[2020-08-23 04:00] VITALS: BP 116/65
[2020-08-23] MEDS: HYDROcodone/APAP 5 MG/325 MG (LORTAB) TAB PO PRN ×2 (06:08→13:04)
[2020-08-23 08:30] VITALS: BP 119/70
[2020-08-23] MEDS: DOCUSATE SODIUM 100 MG (COLACE) CAP PO SCH (08:40)
--- NOTE | 2020-08-23 09:30 | Postpartum Progress Note ---
Note Note Day # 2 s/p RLTCS Advised by RN that patient had severe headache yesterday. States it had gotten worse during the day, but began improving last night and is better today. Has been drinking fluids and caffeine. Discussed treatment of spinal headache. States headache not affected by position changes this morning. Subjective: Patient is without complaints. Ambulating, voiding. Tolerating a regular diet without nausea or vomiting. Normal lochia. Pain is well controlled with oral pain medications. Objective: 08/22/20 08/23/20 22:00 04:00 Temp 36.0 36.2 Pulse 96 87 Resp 18 18 B/P (MAP) 111/59 (76) 116/65 (82) Pulse Ox 99 98 O2 Delivery Room Air Room Air 08/23/20 00:00 Intake Total 1200 ml Output Total 875 ml Balance 325 ml Physical Exam: General - Alert and oriented, no apparent distress Abdomen - Soft, appropriately tender to palpation, non-distended, fundus firm at umbilicus Extremities - no edema, negative Umang's bilaterally Assessment: 1. post- day # 2, status post repeat section 2. post headache, possibly spinal; symptoms improving Plan: Routine care. Encourage breast feeding. Encourage ambulation. Ferrous sulfate supplementation. Plan for discharge today at patient request. Information given regarding spinal headaches. Vitals - Labs Vital Signs - I&O Vital Signs Date Time Temp Pulse Resp B/P (MAP) Pulse Ox O2 Delivery O2 Flow Rate FiO2 08/23/20 04:00 36.2 87 18 116/65 (82) 98 Room Air 08/22/20 22:00 36.0 96 18 111/59 (76) 99 Room Air 08/22/20 16:20 36.6 77 18 115/69 (84) 98 Room Air 08/22/20 12:45 36.2 77 18 110/70 (83) 98 Room Air I & O 08/23/20 07:00 Intake Total 1200 ml Output Total 875 ml Balance 325 ml Labs Microbiology 08/21/20 Urine Culture - Final, Complete NO GROWTH 08/21/20 MRSA Screen - Final, Complete MRSA not isolated PUSHPA LOPEZ DO Aug 23, 2020 09:30
[2020-08-23 13:50] VITALS: BP 119/70
== END 2020-08-23 13:50 | disposition home or self-care (01) | DRG 787 ==
LOC: LDRP 05:57
PROVIDERS: ADMIT Obstetrics & Gynecology; ATTEND Obstetrics & Gynecology
PROC: 10D00Z1 Extraction of Products of Conception, Low, Open Approach (ICD-10-PCS; principal; 2020-08-21 07:30)
DX: O34.211 Maternal care for low transverse scar from previous cesarean delivery (principal); D62 Acute posthemorrhagic anemia; O26.893 Other specified pregnancy related conditions, third trimester; D72.829 Elevated white blood cell count, unspecified; O90.81 Anemia of the puerperium; O89.4 Spinal and epidural anesthesia-induced headache during the puerperium; Z88.0 Allergy status to penicillin; Z37.0 Single live birth; Z3A.39 39 weeks gestation of pregnancy
CPT/HCPCS: 36415; 80306; 81000; 83033; 85007; 85025; 85027; 86850; 86900; 86901; 87081; 87088; 94664

== ENCOUNTER 2020-12-29 07:02 | Emergency (ER) | payer MEDICAID ==
[~2020-12-29] VITALS: Ht 175.3 cm; Wt 64.4 kg
[~2020-12-29 07:02] MED LIST changes: +DOCU-239 PO; +IBUP-1773 PO; +IBUP-844 PO
--- OUTSIDE RECORDS SUMMARY | 2020-12-29 07:06 | XMS REPORT | Clinical Summary ---
Author Author [facility] Organization [facility] Address Unknown Phone Unavailable Care Team Providers Care Manager Category Name Role Phone Maryellen Yu MD PCP Source Comments Some departments are not documenting in the electronic medical record. If you d o not see the information that you expected, contact Release of Information in [facility] [employer]works Information Management department at [phone] for further assistan ce in locating additional records.[facility] Allergies Comments Active Allergy Reactions Severity Noted Date Only with liquid motrin Ibuprofen RASH Medium 08/07/2019 Penicillins RASH Medium 08/07/2019 Ondansetron RASH Medium 08/07/2019 Medications Not on file Active Problems Not on file Social History Date Tobacco Use Types Packs/Day Years Used Never Smoker Smokeless Tobacco: Never Used Sex Assigned at Date Recorded Not on file Last Filed Vital Signs Reading Time Taken Comments Vital Sign 109/65 08/07/2019 8:31 PM CDT Blood Pressure 91 08/07/2019 4:59 PM CDT Pulse 36.6 C (97.9 F) 08/07/2019 4:59 PM CDT Temperature - - Respiratory Rate 100% 08/07/2019 8:31 PM CDT Oxygen Saturation - - Inhaled Oxygen Concentration 56.7 kg (125 lb) 08/07/2019 4:59 PM CDT Weight 175.3 cm (5' 9") 08/07/2019 4:59 PM CDT Height 18.46 08/07/2019 4:59 PM CDT Body Mass Index Plan of Treatment Health Maintenance Due Date Last Done Comments HPV VACCINES (1 - 2-dose 01/15/2008 series) HIV SCREENING 01/15/2012 DTAP/TDAP VACCINES (1 - 2015 Tdap) HEPATITIS C SCREENING 2015 PHYSICAL (COMPREHENSIVE) 2015 EXAM CERVICAL CANCER SCREENING 2018 CHLAMYDIA SCREENING 18-24 08/06/2020 08/07/2019 YEARS INFLUENZA VACCINE 10/04/2020 Results Not on filefrom Last 3 Months Insurance Type Payer Benefit Subscriber ID Effective Phone Address Plan / Dates Group Indemnity GENERIC COMMERCIAL GENERIC [id number]-P COMMERCIAL resent ([place]) [place], [place] [address] Advance Directives Patient Mail Rider Explanation Type Date Recorded Advance 08/07/2019 4:43 PM Directive/DPOA
--- NOTE | 2020-12-29 07:28 | ED Upper Extremity ---
General Chief Complaint: Upper Extremity Stated Complaint: LT SHOULDER PAIN Nursing Triage Note: PT AMBULATE TO ROOM FS02 WITH C/O LEFT SHOULDER PAIN, TINGLING DOWN LEFT ARM SINCE OCTOBER. PT STATES PAIN AND TINGLING STARTED IN OCTOBER AFTER A SPINAL FOR . PT REPORTS SEEING PCP FOR THIS C/O "A COUPLE MONTHS AGO" AND WAS TOLD TO FOLLOW UP WITH PCP IF SYMPTOMS HAVE NOT IMPROVED BY FEBRUARY. Source: patient Exam Limitations: no limitations History of Present Illness Date Seen by Provider: Dec 29, 2020 Time Seen by Provider: 07:10 Initial Comments Patient is a 24-year-old right-handed female presents with left shoulder pain intermittent x4 months. Pain is moderate to severe worse with palpation and movement. Is not relieved with rest. No medications or therapies taken prior to ED arrival. Patient is a G3, P3 female. Her youngest child is 4 months old. She is constantly lifting children, caring toe bags and car seats. She reports sharp anterior shoulder pain below the AC joint. Pain is worse with movement and abduction. Reports intermittent tingling numbness in the left arm. No motor weakness. No cervical pain. No other acute symptoms or complaints. Onset: last week Pain/Injury Location: left shoulder Method of Injury: other Modifying Factors: Improves With Other Allergies and Home Medications Allergies Coded Allergies: Penicillins (Unverified Adverse Reaction, Unknown, 11/01/19) ondansetron (Unverified Adverse Reaction, Unknown, 11/01/19) Uncoded Allergies: Silk tape (Adverse Reaction, Mild, rash, 11/01/19) Patient Home Medication List Home Medication List Reviewed: Yes Docusate Sodium (Dok) 100 Mg Capsule, 100 MG PO BID PRN for CONSTIPATION-1ST LINE Prescribed by: JEANA GHOSH on 08/21/20 0725 Famotidine (Pepcid) 20 Mg Tablet, 20 MG PO DAILY, (Reported) Entered as Reported by: JG LICEA on 05/01/20 1123 Hydrocodone Bit/Acetaminophen (HYDROcodone/APAP 5 MG/325 MG TAB) 1 Tab Tab, 1-2 EA PO Q6HR PRN for PAIN-MODERATE (5-7) Prescribed by: JEANA GHOSH on 08/21/20 0725 Hydrocodone/Acetaminophen (Hydrocodone-Acetamin 5-325 mg) 1 Each Tablet, 1 TAB PO Q4H PRN for PAIN-MODERATE (5-7) Prescribed by: JEANA GHOSH on 10/08/20 1535 Ibuprofen (Ibu) 600 Mg Tablet, 600 MG PO Q6HR Prescribed by: JEANA GHOSH on 08/21/20 0725 Ibuprofen (Ibuprofen) 600 Mg Tablet, 600 MG PO Q6H Prescribed by: JEANA GHOSH on 10/08/20 1534 Vit W-Ca,Fe,FA(<1 mg) ( Vitamins) 1 Each Tablet, 1 EACH PO DAILY, (Reported) Entered as Reported by: JOSEPH LING on 04/11/20 1555 Review of Systems Constitutional: see HPI EENTM: see HPI Respiratory: see HPI Cardiovascular: see HPI Gastrointestinal: see HPI Genitourinary: see HPI Musculoskeletal: see HPI Skin: see HPI Psychiatric/Neurological: See HPI All Other Systems Reviewed Negative Unless Noted: Yes Past Wwjcgfl-Zdmowd-Bxarzn Hx Patient Social History Tobacco Use?: Yes Tobacco type used: Cigarettes Smoking Status: Current Everyday Smoker Smokeless Tobacco Frequency: Never a User Use of E-Cig and/or Vaping Marcos: Never a User Substance use?: No Alcohol Use?: No Immunizations Up To Date PED Vaccines UTD: No Seasonal Allergies Seasonal Allergies: No Past Medical History Surgeries: Yes (C/S x 2) Adenoidectomy, Section, Gallbladder, Tonsillectomy Respiratory: No Currently Using CPAP: No Currently Using BIPAP: No Cardiac: No Neurological: No Genitourinary: No Gastrointestinal: No Musculoskeletal: No Endocrine: No HEENT: No Cancer: No Psychosocial: No Integumentary: No Blood Disorders: No Physical Exam Vital Signs Vital Signs - First Documented 12/29/20 07:15 Temp 36.5 Pulse 89 Resp 19 B/P (MAP) 117/63 (81) O2 Delivery Room Air Capillary Refill : Less Than 3 Seconds Height, Weight, BMI Height: '" Weight: lbs. oz. kg; 20.00 BMI Method: General Appearance: mild distress HEENT: PERRL/EOMI Neck: non-tender, full range of motion Cardiovascular: normal peripheral pulses, regular rate, rhythm Respiratory: chest non-tender, lungs clear Shoulder: limited ROM (Left AC joint), pain, soft tissue tenderness Neurologic/Tendon: normal sensation, normal motor functions Progress/Results/Core Measures Results/Orders Vital Signs/I&O 12/29/20 07:15 Temp 36.5 Pulse 89 Resp 19 B/P (MAP) 117/63 (81) O2 Delivery Room Air Blood Pressure Mean: 81 Departure Communication (Admissions) Exam consistent with left shoulder impingement syndrome. Recommendations supportive care with PCP follow-up. Return precautions reviewed. Impression Primary Impression: Impingement syndrome of left shoulder Disposition: HOME, SELF-CARE Condition: Stable Departure-Patient Inst. Decision time for Depature: 07:28 Referrals: VANESSA BOSE MD (PCP/Family) Primary Care Physician Patient Instructions: Shoulder Impingement Add. Discharge Instructions: Your evaluated in the emergency department for left shoulder pain. This is consistent with injury of the supraspinatus tendon due to arm overuse and posture. Please take naproxen twice daily and wear sling follow-up with your PCP. Return to the ED if new or worsening symptoms All discharge instructions reviewed with patient and/or family. Voiced understanding. Scripts Naproxen (Naprosyn) 500 Mg Tablet 500 MG PO BID, #60 TAB 0 Refills Prov: KELLEE CARRENO DO 12/29/20 KELLEE CARRENO DO Dec 29, 2020 07:28
[2020-12-29] MEDS ORDERED: NAPR-1071 PO (07:29)
[2020-12-29 07:42] VITALS: BP 119/67
== END 2020-12-29 07:42 | disposition home or self-care (01) ==
LOC: EDUNIT# 07:02 → ER FS 07:03
DX: M75.42 Impingement syndrome of left shoulder (principal); F17.210 Nicotine dependence, cigarettes, uncomplicated
CPT/HCPCS: 99282; A4565

== ENCOUNTER 2020-12-30 20:03 | Emergency (ER) | payer MEDICAID ==
[~2020-12-30] VITALS: Ht 175.2 cm; Wt 60.0 kg
[~2020-12-30 20:03] MED LIST changes: +NAPR-1071 PO
--- NOTE | 2020-12-30 20:22 | ED Upper Extremity ---
General Chief Complaint: Upper Extremity Stated Complaint: L SHOULDER PAIN, NECK PAIN Source: patient Exam Limitations: no limitations History of Present Illness Date Seen by Provider: Dec 30, 2020 Time Seen by Provider: 20:16 Initial Comments To ER with left shoulder pain that radiates up into the left neck. This began on Monday of this week without known injury. 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 She has tingling to the left arm as well. This is all exacerbated by movement of the left shoulder. No antecedent injury or trauma no fever no chills. She has not seen primary care yet for this. She did see emergency room at [facility] on 29 December for this and given naproxen which was not helpful. She has also had numbness in her left leg and left arm since September 20. She attributes this numbness in the arm to the epidural she received during childbirth. Onset: just prior to arrival Severity: moderate Pain/Injury Location: left shoulder, left arm Method of Injury: unknown Modifying Factors: Worse With Movement Allergies and Home Medications Allergies Coded Allergies: Penicillins (Unverified Adverse Reaction, Unknown, 11/01/19) ondansetron (Unverified Adverse Reaction, Unknown, 11/01/19) Uncoded Allergies: Silk tape (Adverse Reaction, Mild, rash, 11/01/19) Patient Home Medication List Home Medication List Reviewed: Yes Docusate Sodium (Dok) 100 Mg Capsule, 100 MG PO BID PRN for CONSTIPATION-1ST LINE Prescribed by: JEANA GHOSH on 08/21/20 0725 Famotidine (Pepcid) 20 Mg Tablet, 20 MG PO DAILY, (Reported) Entered as Reported by: JG LICEA on 05/01/20 1123 Hydrocodone Bit/Acetaminophen (HYDROcodone/APAP 5 MG/325 MG TAB) 1 Tab Tab, 1-2 EA PO Q6HR PRN for PAIN-MODERATE (5-7) Prescribed by: JEANA GHOSH on 08/21/20 0725 Hydrocodone/Acetaminophen (Hydrocodone-Acetamin 5-325 mg) 1 Each Tablet, 1 TAB PO Q4H PRN for PAIN-MODERATE (5-7) Prescribed by: JEANA GHOSH on 10/08/20 1535 Ibuprofen (Ibu) 600 Mg Tablet, 600 MG PO Q6HR Prescribed by: JEANA GHOSH on 08/21/20 0725 Ibuprofen (Ibuprofen) 600 Mg Tablet, 600 MG PO Q6H Prescribed by: JEANA GHOSH on 10/08/20 1534 Naproxen (Naprosyn) 500 Mg Tablet, 500 MG PO BID Prescribed by: KELLEE CARRENO on 12/29/20 0729 Vit W-Ca,Fe,FA(<1 mg) ( Vitamins) 1 Each Tablet, 1 EACH PO DAILY, (Reported) Entered as Reported by: JOSEPH LING on 04/11/20 1555 Review of Systems Constitutional: see HPI; No chills, No fever EENTM: see HPI Respiratory: no symptoms reported Cardiovascular: no symptoms reported Genitourinary: no symptoms reported Musculoskeletal: see HPI Skin: no symptoms reported Psychiatric/Neurological: No Symptoms Reported Past Mpqjkub-Hlhhte-Uroypq Hx Immunizations Up To Date PED Vaccines UTD: No Seasonal Allergies Seasonal Allergies: No Past Medical History Surgeries: Yes (C/S x 2) Adenoidectomy, Section, Gallbladder, Tonsillectomy Respiratory: No Currently Using CPAP: No Currently Using BIPAP: No Cardiac: No Neurological: No Genitourinary: No Gastrointestinal: No Musculoskeletal: No Endocrine: No HEENT: No Cancer: No Psychosocial: No Integumentary: No Blood Disorders: No Physical Exam Vital Signs Capillary Refill : Height, Weight, BMI Height: '" Weight: lbs. oz. kg; 20.00 BMI Method: General Appearance: WD/WN, no apparent distress Neck: non-tender, full range of motion Respiratory: no respiratory distress, no accessory muscle use Gastrointestinal: normal bowel sounds, non tender Shoulder: normal inspection, limited ROM, pain, soft tissue tenderness Elbow/Forearm: normal inspection, non-tender Wrist: Yes normal inspection, Yes non-tender Hand: normal inspection, non-tender Neurologic/Tendon: normal motor functions, normal tendon functions Neurologic/Psychiatric: alert, normal mood/affect, oriented x 3 Skin: normal color, warm/dry Progress/Results/Core Measures Results/Orders My Orders Orders - YUNG WATTS APRN Rx-Hydrocodone/Apap 5-325 Mg (Rx-Vicodin (12/30/20 20:15) Departure Communication (Admissions) Without injury I do not have any concern that warrants plain films or CT imaging here. She will follow-up with Dr. Barnett knee she states to discuss obtaining MRI. She will continue to wear the sling that she arrives in. Impression Primary Impression: Internal derangement of left shoulder Disposition: HOME, SELF-CARE Condition: Stable Departure-Patient Inst. Decision time for Depature: 20:20 Referrals: VANESSA BOSE MD (PCP/Family) Primary Care Physician Patient Instructions: Shoulder Pain (DC) Add. Discharge Instructions: 1. Follow-up with Dr. Curt Liu to discuss scheduling an MRI to further evaluate the shoulder pain. Take the stronger pain medication as directed in addition to the medication prescribed last night. All discharge instructions reviewed with patient and/or family. Voiced understanding. YUNG WATTS [employer] MACHINE OPERATOR Dec 30, 2020 20:22
[2020-12-30 20:32] VITALS: BP 123/88
== END 2020-12-30 20:30 | disposition home or self-care (01) ==
LOC: EDUNIT# 20:03 → ER 20:06
DX: M24.9 Joint derangement, unspecified (principal)
CPT/HCPCS: 99283

== ENCOUNTER 2021-10-12 19:43 | Emergency (ER) | payer SELFPAY ==
[~2021-10-12] VITALS: Ht 175 cm; Wt 60.0 kg
[2021-10-12] MEDS ORDERED: TRIM/SULFAMETH 160/800 (SEPTRA DS) TAB PO ONE (20:00)
[2021-10-12] MEDS ORDERED: IBUPROFEN 600 MG (MOTRIN) TAB PO ONE (20:00)
[2021-10-12] MEDS ORDERED: SULF1TAB38 PO (20:02)
--- NOTE | 2021-10-12 20:02 | ED Integumentary General ---
General Chief Complaint: Skin/Wound Problems Stated Complaint: R ARMPIT PAIN,SWELLING,REDNESS Source: patient Exam Limitations: no limitations History of Present Illness Date Seen by Provider: Oct 12, 2021 Time Seen by Provider: 19:46 Initial Comments 26-year-old female with no pertinent past medical history coming in due to pain and swelling in her right armpit been going on for roughly 3 days. She does shave, but has not recently. No fever that she knows of. The pain is now Going into her chest somewhat when she moves her arm. Its moderate, throbbing, worse with movement, better with rest. She has not taken anything for it as of yet. She is otherwise denying any other acute complaints. She is up-to-date with her tetanus vaccine. Allergies and Home Medications Allergies Coded Allergies: Penicillins (Unverified Adverse Reaction, Unknown, 11/01/19) ondansetron (Unverified Adverse Reaction, Unknown, 11/01/19) Uncoded Allergies: Silk tape (Adverse Reaction, Mild, rash, 11/01/19) Patient Home Medication List Home Medication List Reviewed: Yes Docusate Sodium (Dok) 100 Mg Capsule, 100 MG PO BID PRN for CONSTIPATION-1ST LINE Prescribed by: JEANA GHOSH on 08/21/20724 Famotidine (Pepcid) 20 Mg Tablet, 20 MG PO DAILY, (Reported) Entered as Reported by: JG LICEA on 05/01/20 112 Hydrocodone Bit/Acetaminophen (HYDROcodone/APAP 5 MG/325 MG TAB) 1 Tab Tab, 1-2 EA PO Q6HR PRN for PAIN-MODERATE (5-7) Prescribed by: JEANA GHOSH on 08/21/20 0725 Hydrocodone/Acetaminophen (Hydrocodone-Acetamin 5-325 mg) 1 Each Tablet, 1 TAB PO Q4H PRN for PAIN-MODERATE (5-7) Prescribed by: JEANA GHOSH on 10/08/20 1535 Ibuprofen (Ibu) 600 Mg Tablet, 600 MG PO Q6HR Prescribed by: JEANA GHOSH on 08/21/20 07 Ibuprofen (Ibuprofen) 600 Mg Tablet, 600 MG PO Q6H Prescribed by: JEANA GHOSH on 10/08/20 153 Naproxen (Naprosyn) 500 Mg Tablet, 500 MG PO BID Prescribed by: KELLEE CARRENO on 12/29/20 0729 Vit W-Ca,Fe,FA(<1 mg) ( Vitamins) 1 Each Tablet, 1 EACH PO D AILY, (Reported) Entered as Reported by: JOSEPH LING on 04/11/20 9045 Review of Systems Review of Systems Constitutional: No fever EENTM: No blurred vision Respiratory: No cough Cardiovascular: No chest pain Gastrointestinal: No abdominal pain Genitourinary: no symptoms reported Musculoskeletal: see HPI Skin: see HPI Psychiatric/Neurological: No Symptoms Reported Endocrine: No Symptoms Reported Hematologic/Lymphatic: No Symptoms Reported All Other Systems Reviewed Negative Unless Noted: Yes Past Rhzcsqp-Zouhsi-Kojfhc Hx Patient Social History Substance use?: Yes Substance type: Marijuana Immunizations Up To Date PED Vaccines UTD: No Seasonal Allergies Seasonal Allergies: No Past Medical History Surgeries: Yes (C/S x 2) Adenoidectomy, Section, Gallbladder, Tonsillectomy Respiratory: No Currently Using CPAP: No Currently Using BIPAP: No Cardiac: No Neurological: No Genitourinary: No Gastrointestinal: No Musculoskeletal: No Endocrine: No HEENT: No Cancer: No Psychosocial: No Integumentary: No Blood Disorders: No Physical Exam Vital Signs Capillary Refill : General Appearance: WD/WN, no apparent distress HEENT: PERRL/EOMI, normal ENT inspection, pharynx normal Neck: non-tender, full range of motion, supple, normal inspection Cardiovascular: regular rate, rhythm, no edema, no murmur Respiratory: chest non-tender, lungs clear, normal breath sounds, no respiratory distress, no accessory muscle use Gastrointestinal: normal bowel sounds, non tender, soft; No distended, No guarding, No rebound Back: normal inspection Extremities: normal range of motion, non-tender, normal inspection, no pedal edema, no calf tenderness, normal capillary refill Neurologic/Psychiatric: no motor/sensory deficits, alert, normal mood/affect Skin: normal color, warm/dry, other (Erythema to the right axilla with area of fluctuance) Lymphatic: no adenopathy Procedures/Interventions I&D : Site: right axilla Blade Size: 11 I & D Procedure: betadine prep Progress Single stab incision with moderate amount of purulent drainage. Patient tolerated the procedure well. Progress/Results/Core Measures Results/Orders My Orders Orders - YESICA NORRIS MD Sulfamethoxazole/Trimet Ds Tab (Bactrim (10/12/21 20:00) Ibuprofen Tablet (Motrin Tablet) (10/12/21 20:00) Progress Progress Note : Progress Note 26-year-old female with above history coming in due to an abscess in her right axilla. It was incised and drained. She has overlying cellulitis so she will be started on antibiotics. She should follow-up with her regular doctor in the next couple days if things are not improving. Departure Impression Primary Impression: Cellulitis and abscess of upper extremity Disposition: HOME, SELF-CARE Condition: Stable Departure-Patient Inst. Decision time for Depature: 20:15 Referrals: VANESSA BOSE MD (PCP/Family) Primary Care Physician Patient Instructions: Cellulitis (Skin Infection), Adult ED, Abscess Incision and Drainage (DC) Add. Discharge Instructions: Take antibiotics for the next week. Take ibuprofen or Tylenol as needed for pain. Follow-up with your regular doctor if things are not improving in the next couple days. Scripts Sulfamethoxazole/Trimethoprim (Bactrim Ds Tablet) 1 Each Tablet 1 EACH PO BID for 7 Days, #14 TAB Prov: YESICA NORRIS MD 10/12/21 Work/School Note: Work Release Form Date Seen in the Emergency Department: Oct 12, 2021 Return to Work: Oct 14, 2021 Restrictions: No Restrictions YESICA NORRIS MD Oct 12, 2021 20:02
[2021-10-12 20:08] VITALS: BP 108/77
== END 2021-10-12 20:08 | disposition home or self-care (01) ==
LOC: EDUNIT# 19:43 → ER FS 19:45
DX: L02.411 Cutaneous abscess of right axilla (principal); L03.111 Cellulitis of right axilla; Z28.310 Unvaccinated for COVID-19
CPT/HCPCS: 99283

== ENCOUNTER 2021-10-23 14:22 | Emergency (ER) | payer SELFPAY ==
[~2021-10-23 14:22] MED LIST changes: +SULF1TAB38 PO
[2021-10-23] MEDS ORDERED: IBUPROFEN 600 MG (MOTRIN) TAB PO ONE (15:00)
--- NOTE | 2021-10-23 15:09 | ED GU-Female ---
General Chief Complaint: - Reproductive Stated Complaint: VAGINAL BLEEDING; ABD/BACK PAIN Nursing Triage Note: Patient presents to the ED with c/o vaginal bleeding, pelvic, and lower back pain. Reports bleeding started today. States she hasn't been wearing a pad and has been soaking through her underwear and pants every 2 hours. Source: patient Exam Limitations: no limitations History of Present Illness Date Seen by Provider: Oct 23, 2021 Time Seen by Provider: 14:37 Initial Comments 26-year-old female with history of tubal ligation 1 year ago states she had had last menstruation about September 27. Patient complaining of vaginal bleeding that started about 2 and half hours prior to arrival to ER with left lower quadrant pain rated her pain 7/10. Patient states she did not wear a pad because she did not have any pad at home/did not have money to buy pad and had soaked finger of her underwear and pants twice. Patient denies passing blood clots, dizziness, palpitation, chest pain or shortness of breath. Patient did not take pain medication at home. Patient denies history of dysmenorrhea. Allergies and Home Medications Allergies Coded Allergies: Penicillins (Unverified Adverse Reaction, Unknown, 11/01/19) ondansetron (Unverified Adverse Reaction, Unknown, 11/01/19) Uncoded Allergies: Silk tape (Adverse Reaction, Mild, rash, 11/01/19) Patient Home Medication List Home Medication List Reviewed: Yes Docusate Sodium (Dok) 100 Mg Capsule, 100 MG PO BID PRN for CONSTIPATION-1ST LINE Prescribed by: JEANA GHOSH on 08/21/20 0725 Famotidine (Pepcid) 20 Mg Tablet, 20 MG PO DAILY, (Reported) Entered as Reported by: JG LICEA on 05/01/20 1123 Hydrocodone Bit/Acetaminophen (HYDROcodone/APAP 5 MG/325 MG TAB) 1 Tab Tab, 1-2 EA PO Q6HR PRN for PAIN-MODERATE (5-7) Prescribed by: JEANA GHOSH on 08/21/20 0725 Hydrocodone/Acetaminophen (Hydrocodone-Acetamin 5-325 mg) 1 Each Tablet, 1 TAB PO Q4H PRN for PAIN-MODERATE (5-7) Prescribed by: JEANA GHOSH on 10/08/20 1535 Ibuprofen (Ibu) 600 Mg Tablet, 600 MG PO Q6HR Prescribed by: JEANA GHOSH on 08/21/20 0725 Ibuprofen (Ibuprofen) 600 Mg Tablet, 600 MG PO Q6H Prescribed by: JEANA GHOSH on 10/08/20 1534 Naproxen (Naprosyn) 500 Mg Tablet, 500 MG PO BID Prescribed by: KELLEE CARRENO on 12/29/20 0729 Naproxen (Naprosyn) 500 Mg Tablet, 500 MG PO BID PRN for pain Prescribed by: Sydney osborne on 10/23/21 1513 Vit W-Ca,Fe,FA(<1 mg) ( Vitamins) 1 Each Tablet, 1 EACH PO DAILY, (Reported) Entered as Reported by: JOSEPH LING on 04/11/20 155 Sulfamethoxazole/Trimethoprim (Bactrim Ds Tablet) 1 Each Tablet, 1 EACH PO BID Prescribed by: YESICA NORRIS on 10/12/212001 Review of Systems Review of Systems Constitutional: no symptoms reported EENTM: no symptoms reported Respiratory: no symptoms reported Cardiovascular: no symptoms reported Gastrointestinal: see HPI Genitourinary: see HPI : No Musculoskeletal: no symptoms reported Skin: no symptoms reported Psychiatric/Neurological: No Symptoms Reported Hematologic/Lymphatic: No Symptoms Reported All Other Systemes Reviewed Negative Unless Noted: Yes Past Medtefs-Xdlhyh-Blbozn Hx Patient Social History Use of E-Cig and/or Vaping dev: Yes E-Cig or Vaping type used: Nicotine Use of E-Cig and/or Vaping Marcos: Current Someday User Substance use?: Yes Substance type: Marijuana Substance frequency: Couple times a week Alcohol Use?: Yes Alcohol Frequency: Once in a while Pt feels they are or have been: No Immunizations Up To Date PED Vaccines UTD: No First/Initial COVID19 Vaccinat: denies Second COVID19 Vaccination Kofi: denies Third COVID19 Vaccination Date: denies Seasonal Allergies Seasonal Allergies: No Past Medical History Surgery/Hospitalization HX: 3 c-sections; cholecysectomy; Tubal ligation Surgeries: Yes (C/S x 2) Adenoidectomy, Section, Gallbladder, Tonsillectomy Respiratory: No Currently Using CPAP: No Currently Using BIPAP: No Cardiac: No Neurological: No Last Menstrual Period: Oct 23, 2021 Genitourinary: No Gastrointestinal: No Musculoskeletal: No Endocrine: No HEENT: No Cancer: No Psychosocial: No Integumentary: No Blood Disorders: No Physical Exam Vital Signs Vital Signs - First Documented 10/23/21 14:35 Temp 36.4 Pulse 79 Resp 16 B/P (MAP) 111/75 (87) Pulse Ox 98 O2 Delivery Room Air Capillary Refill : Less Than 3 Seconds Height, Weight, BMI Height: '" Weight: lbs. oz. kg; 19.00 BMI Method: General Appearance: WD/WN, no apparent distress HEENT: PERRL/EOMI, normal ENT inspection Neck: non-tender, full range of motion Cardiovascular: regular rate, rhythm, no edema, no gallop, no JVD Respiratory: chest non-tender, lungs clear, normal breath sounds, no respiratory distress Gastrointestinal: normal bowel sounds, non tender, soft, no organomegaly, no pulsatile mass Back: normal inspection, no CVA tenderness Extremities: normal range of motion, non-tender Neurologic/Psychiatric: alert, normal mood/affect, oriented x 3 Skin: normal color, warm/dry Progress/Results/Core Measures Suspected Sepsis SIRS Temperature: Pulse: 79 Respiratory Rate: 16 Blood Pressure 111 /75 Mean: 87 Results/Orders Lab Results Laboratory Tests Test 10/23/21 14:28 Range/Units Urine Test NEGATIVE NEGATIVE My Orders Orders - SYDNEY OSBORNE MD Hcg,Qualitative Urine (10/23/21 14:43) Ibuprofen Tablet (Motrin Tablet) (10/23/21 15:00) Medications Given in ED Current Medications Medications Dose Ordered Sig/Molina Route Start Time Stop Time Status Last Admin Dose Admin Ibuprofen 600 mg ONCE ONCE PO 10/23/21 15:00 10/23/21 15:02 DC 10/23/21 15:05 600 MG Vital Signs/I&O 10/23/21 14:35 Temp 36.4 Pulse 79 Resp 16 B/P (MAP) 111/75 (87) Pulse Ox 98 O2 Delivery Room Air Capillary Refill : Less Than 3 Seconds Blood Pressure Mean: 87 Progress Note : Progress Note Evaluation of patient in ER showed 26-year-old female patient with complaining of vaginal bleeding and cramping abdominal pain after she started her menstruation about 2 and half hours ago without wearing a pad. Patient had a stable vital signs and a negative test. Pap was provided and ibuprofen 600 mg was given. Prescription for Naprosyn was given and patient advised to use a pad. Departure Impression Primary Impression: Dysmenorrhea, unspecified Disposition: 01 HOME, SELF-CARE Condition: Stable Departure-Patient Inst. Decision time for Depature: 15:10 Referrals: VANESSA BOSE MD (PCP) Primary Care Physician Patient Instructions: Painful Periods, Menstrual Cramps Add. Discharge Instructions: Drink plenty of liquid May apply heat pad on painful area Return to ER or follow-up with your primary care physician as needed All discharge instructions reviewed with patient and/or family. Voiced understanding. Scripts Naproxen (Naprosyn) 500 Mg Tablet 500 MG PO BID PRN for pain, #20 TAB Prov: SYDNEY OSBORNE MD 10/23/21 SYDNEY OSBORNE MD Oct 23, 2021 15:09
[2021-10-23] MEDS ORDERED: NAPR-1071 PO (15:13)
[2021-10-23 15:14] VITALS: BP 111/75
== END 2021-10-23 15:14 | disposition home or self-care (01) ==
LOC: EDUNIT# 14:22 → ER FS 14:23
DX: N94.6 Dysmenorrhea, unspecified (principal); F17.290 Nicotine dependence, other tobacco product, uncomplicated; Z28.310 Unvaccinated for COVID-19
CPT/HCPCS: 84703; 99283

== ENCOUNTER 2021-12-16 06:45 | Emergency (ER) | payer MEDICAID ==
[~2021-12-16] VITALS: Ht 175 cm; Wt 56.0 kg
[2021-12-16 07:08] VITALS: BP 114/80
[2021-12-16] MEDS ORDERED: CEPHALEXIN 250 MG (KEFLEX) CAP PO STA (07:20)
[2021-12-16] MEDS ORDERED: ACETAMINOPHEN 500 MG TAB (TYLENOL) PO STA (07:20)
[2021-12-16] MEDS ORDERED: CEPH500C PO (07:25)
[2021-12-16] MEDS ORDERED: IBUP-1773 PO (07:25)
[2021-12-16] MEDS ORDERED: MUPI22OI2 TP (07:25)
--- NOTE | 2021-12-16 07:28 | ED Lower Extremity ---
General Chief Complaint: Lower Extremity Stated Complaint: LT TOE PAIN Nursing Triage Note: Patient complains of left toe pain for the past 2 weeks. Source: patient History of Present Illness Date Seen by Provider: Dec 16, 2021 Time Seen by Provider: 07:00 Initial Comments 26 yo female presenting with complaint of 2 weeks increasing pain to left big toe. She has a history of prior ingrown toenails. She has had drainage from the toenail. Its more inflamed on the lateral side of the toenail. She has been feeling sick and having subjective fever. She also has some upper respiratory congestion which may be allergies versus early sinus issues. She had been trying Tylenol for the toe pain. Today when she got up out of bed she was to go to work but the pain was so bad in her toes she was having trouble walking. She called into work and came here to the emergency department instead. Severity: moderate Pain/Injury Location: left 1st toe Method of Injury: unknown Modifying Factors: Worse With Movement (walking and palpation hurts her toe); Improves With Pain Medication (helps some) Allergies and Home Medications Allergies Coded Allergies: Penicillins (Unverified Adverse Reaction, Unknown, 11/01/19) ondansetron (Unverified Adverse Reaction, Unknown, 11/01/19) Uncoded Allergies: Silk tape (Adverse Reaction, Mild, rash, 11/01/19) Patient Home Medication List Home Medication List Reviewed: Yes Cephalexin (Cephalexin) 500 Mg Capsule, 500 MG PO TID Prescribed by: MG DUMONT on 12/16/21 0725 Docusate Sodium (Dok) 100 Mg Capsule, 100 MG PO BID PRN for CONSTIPATION-1ST LINE Prescribed by: JEANA GHOSH on 08/21/20 0725 Famotidine (Pepcid) 20 Mg Tablet, 20 MG PO DAILY, (Reported) Entered as Reported by: JG LICEA on 05/01/20 1123 Hydrocodone Bit/Acetaminophen (HYDROcodone/APAP 5 MG/325 MG TAB) 1 Tab Tab, 1-2 EA PO Q6HR PRN for PAIN-MODERATE (5-7) Prescribed by: JEANA GHOSH on 08/21/20 0725 Hydrocodone/Acetaminophen (Hydrocodone-Acetamin 5-325 mg) 1 Each Tablet, 1 TAB PO Q4H PRN for PAIN-MODERATE (5-7) Prescribed by: JEANA GHOSH on 10/08/20 1535 Ibuprofen (Ibu) 600 Mg Tablet, 600 MG PO Q6HR Prescribed by: JEANA GHOSH on 08/21/20 0725 Ibuprofen (Ibuprofen) 600 Mg Tablet, 600 MG PO Q6H Prescribed by: JEANA GHOSH on 10/08/20 1534 Ibuprofen (Ibuprofen) 600 Mg Tablet, 600 MG PO Q8H PRN for pain/inflammation Prescribed by: MG DUMONT on 12/16/21 0725 Mupirocin (Mupirocin) 2 % Oint...g., 0.5 GM TP BID Prescribed by: MG DUMONT on 12/16/21 07 Naproxen (Naprosyn) 500 Mg Tablet, 500 MG PO BID Prescribed by: KELLEE CARRENO on 12/29/20 07 Naproxen (Naprosyn) 500 Mg Tablet, 500 MG PO BID PRN for pain Prescribed by: Sydney braun on 10/23/21 1513 Vit W-Ca,Fe,FA(<1 mg) ( Vitamins) 1 Each Tablet, 1 EACH PO DAILY, (Reported) Entered as Reported by: JOSEPH LING on 04/11/20 1555 Sulfamethoxazole/Trimethoprim (Bactrim Ds Tablet) 1 Each Tablet, 1 EACH PO BID Prescribed by: YESICA NORRIS on 10/12/212001 Review of Systems Constitutional: see HPI; No chills; fever (subjective) EENTM: see HPI Respiratory: cough (mild intermittent) Cardiovascular: no symptoms reported Gastrointestinal: no symptoms reported Genitourinary: no symptoms reported Musculoskeletal: see HPI (pain to left great toe) Skin: see HPI, change in color (redness to lateral side of left great toe with drainage) Psychiatric/Neurological: Denies Headache Past Juizawc-Iriyml-Reqpjo Hx Patient Social History Tobacco Use?: No Use of E-Cig and/or Vaping dev: Yes Substance use?: Yes Substance type: Marijuana Substance frequency: Daily Alcohol Use?: No Immunizations Up To Date PED Vaccines UTD: No First/Initial COVID19 Vaccinat: denies Second COVID19 Vaccination Kofi: denies Third COVID19 Vaccination Date: denies Seasonal Allergies Seasonal Allergies: No Past Medical History Surgery/Hospitalization HX: 3 c-sections; cholecysectomy; Tubal ligation Surgeries: Yes (C/S x 2) Adenoidectomy, Section, Gallbladder, Tonsillectomy Respiratory: No Currently Using CPAP: No Currently Using BIPAP: No Cardiac: No Neurological: No Genitourinary: No Gastrointestinal: No Musculoskeletal: No Endocrine: No HEENT: No Cancer: No Psychosocial: No Integumentary: No Blood Disorders: No Physical Exam Vital Signs Vital Signs - First Documented 12/16/21 07:08 Temp 36.2 Pulse 74 Resp 16 B/P (MAP) 114/80 (91) Pulse Ox 98 O2 Delivery Room Air Capillary Refill : Height, Weight, BMI Height: '" Weight: lbs. oz. kg; 18.00 BMI Method: General Appearance: WD/WN, no apparent distress HEENT: PERRL/EOMI Cardiovascular: normal peripheral pulses Feet: left foot infection (erythema, tenderness and drainage present to the left great toe lateral aspect of the toenail), left foot pain (left great toe tender to palpation), left foot soft tissue tenderness, left foot swelling Progress/Results/Core Measures Results/Orders My Orders Orders - MG DUMONT MD Acetaminophen Tablet (Tylenol Tablet) (12/16/21 07:20) Cephalexin Capsule (Keflex Capsule) (12/16/21 07:20) Vital Signs/I&O 12/16/21 07:08 Temp 36.2 Pulse 74 Resp 16 B/P (MAP) 114/80 (91) Pulse Ox 98 O2 Delivery Room Air Blood Pressure Mean: 91 Progress Progress Note : Progress Note Since there is inflammation and drainage to the left great toe with her ingrown toenail we will place her on antibiotics. Advised that she could do warm water soaks with Epsom salts. Prescribed topical Bactroban to help with the infection. Started on cephalexin for the infection. Advised to call the clinic to set up an appointment to have toenail resection done after she has had a couple days of antibiotics. Note to be off work until Monday to give her chance to let the antibiotics start helping and have her toe feel better. Departure Impression Primary Impression: Ingrown toenail of left foot with infection Disposition: 01 HOME, SELF-CARE Condition: Stable Departure-Patient Inst. Decision time for Depature: 07:23 Referrals: VANESSA BOSE MD (PCP/Family) Primary Care Physician Patient Instructions: Ingrown Toenail ED Add. Discharge Instructions: Take the full course of antibiotics to treat for infection with the ingrown t oenail. Apply antibiotic ointment 2 times a day to the toenail to help with infection Use warm water soaks with epsom salts to help with the infection and inflammation. Take Acetaminophen and alternate with Ibuprofen to help with pain. The Ibuprofen will help with inflammation in addition to pain. Call the clinic today to see about scheduling an appointment with a provider to have toenail resection (part of the toenail cut out) to treat for ingrown toenail. All discharge instructions reviewed with patient and/or family. Voiced understanding. Scripts Ibuprofen (Ibuprofen) 600 Mg Tablet 600 MG PO Q8H PRN for pain/inflammation for 10 Days, #30 TAB 0 Refills Prov: MG DUMONT MD 12/16/21 Mupirocin (Mupirocin) 2 % Oint...g. 0.5 GM TP BID for Ingrown infected toenail for 10 Days, #22 GM 0 Refills Prov: MG DUMONT MD 12/16/21 Cephalexin (Cephalexin) 500 Mg Capsule 500 MG PO TID for infected ingrown toenail for 10 Days, #30 CAP 0 Refills Prov: MG DUMONT MD 12/16/21 Work/School Note: Work Release Form Date Seen in the Emergency Department: Dec 16, 2021 Return to Work: Dec 20, 2021 Restrictions: No Restrictions Images Extremities-Lower 1 - Swelling, Tenderness (lateral aspect left great toenail inflamed, tender and drainage present) MG DUMONT MD Dec 16, 2021 07:28
== END 2021-12-16 07:40 | disposition home or self-care (01) ==
LOC: EDUNIT# 06:45 → ER FS 06:48
DX: L60.0 Ingrowing nail (principal); F17.290 Nicotine dependence, other tobacco product, uncomplicated
CPT/HCPCS: 99283

== ENCOUNTER 2021-12-23 17:27 | Emergency (ER) | payer MEDICAID ==
[~2021-12-23] VITALS: Ht 175 cm; Wt 59.0 kg
[~2021-12-23 17:27] MED LIST changes: +MUPI22OI2 TP
--- NOTE | 2021-12-23 19:22 | ED General ---
General Chief Complaint: General Problems/Pain Stated Complaint: L SIDE NUMBNESS/PAIN,MIGRAINE,PAIN WHILE WALKING Nursing Triage Note: PT AMB TO TRIAGE, PT CO OF MIGRAINE STEVEN STARTED TODAY RATES PAIN 5/10, PT STATES L KNEE AND HIP HURTING THIS AM RATES PAIN 7/10. PT STATES HAS L SIDED NUMBNESS FROM SHOULDER TO TOES STARTING IN AUGUST 2020 AFTER . PT DENIES TAKING ANYTHING FOR PAIN (HUI BOND APRN) History of Present Illness Date Seen by Provider: Dec 23, 2021 Time Seen by Provider: 19:10 Initial Comments Patient reports that she has had left sided numbness since August 2020 after she had a . Was seen for the symptoms initially after delivery but has not been seen for them since. Today she states that the pain got worse and needs a note because she does not think that she can stand through work tomorrow. Has not taken anything at home for her symptoms. Timing/Duration: Constant (HUI BOND APRN) Allergies and Home Medications Allergies Coded Allergies: Penicillins (Unverified Adverse Reaction, Unknown, 11/01/19) ondansetron (Unverified Adverse Reaction, Unknown, 11/01/19) Uncoded Allergies: Silk tape (Adverse Reaction, Mild, rash, 11/01/19) Patient Home Medication List Home Medication List Reviewed: Yes (HUI BOND APRN) Cephalexin (Cephalexin) 500 Mg Capsule, 500 MG PO TID Prescribed by: MG DUMONT on 12/16/21 0725 Docusate Sodium (Dok) 100 Mg Capsule, 100 MG PO BID PRN for CONSTIPATION-1ST LINE Prescribed by: JEANA GHOSH on 08/21/20 0725 Famotidine (Pepcid) 20 Mg Tablet, 20 MG PO DAILY, (Reported) Entered as Reported by: JG LICEA on 05/01/20 1123 Hydrocodone Bit/Acetaminophen (HYDROcodone/APAP 5 MG/325 MG TAB) 1 Tab Tab, 1-2 EA PO Q6HR PRN for PAIN-MODERATE (5-7) Prescribed by: JEANA GHOSH on 08/21/20 0725 Hydrocodone/Acetaminophen (Hydrocodone-Acetamin 5-325 mg) 1 Each Tablet, 1 TAB PO Q4H PRN for PAIN-MODERATE (5-7) Prescribed by: JEANA GHOSH on 10/08/20 1535 Ibuprofen (Ibu) 600 Mg Tablet, 600 MG PO Q6HR Prescribed by: JEANA GHOSH on 08/21/20 0725 Ibuprofen (Ibuprofen) 600 Mg Tablet, 600 MG PO Q6H Prescribed by: JEANA GHOSH on 10/08/20 1534 Ibuprofen (Ibuprofen) 600 Mg Tablet, 600 MG PO Q8H PRN for pain/inflammation Prescribed by: MG DUMONT on 12/16/21 0725 Mupirocin (Mupirocin) 2 % Oint...g., 0.5 GM TP BID Prescribed by: MG DUMONT on 12/16/21 07 Naproxen (Naprosyn) 500 Mg Tablet, 500 MG PO BID Prescribed by: KELLEE CARRENO on 12/29/20 0729 Naproxen (Naprosyn) 500 Mg Tablet, 500 MG PO BID PRN for pain Prescribed by: Sydney braun on 10/23/21 1513 Vit W-Ca,Fe,FA(<1 mg) ( Vitamins) 1 Each Tablet, 1 EACH PO DAILY, (Reported) Entered as Reported by: JOSEPH LING on 04/11/20 1555 Sulfamethoxazole/Trimethoprim (Bactrim Ds Tablet) 1 Each Tablet, 1 EACH PO BID Prescribed by: YESICA NORRIS on 10/12/212001 Review of Systems Review of Systems Constitutional: No chills, No dizziness, No fever, No malaise, No weakness EENTM: no symptoms reported Respiratory: no symptoms reported Cardiovascular: no symptoms reported Gastrointestinal: No diarrhea, No nausea, No vomiting Genitourinary: No dysuria, No frequency Musculoskeletal: back pain Psychiatric/Neurological: Numbness (left side of body numbness); Denies Pre- Existing Deficit (HUI BOND APRN) All Other Systems Reviewed Negative Unless Noted: Yes (HUI BOND APRN) Past Lmmpqsm-Zejamz-Spkcyv Hx Patient Social History Tobacco Use?: No Substance use?: Yes Substance type: Marijuana Substance frequency: Daily Alcohol Use?: No Pt feels they are or have been: No (HUI BOND APRN) Immunizations Up To Date PED Vaccines UTD: No First/Initial COVID19 Vaccinat: denies Second COVID19 Vaccination Kofi: denies Third COVID19 Vaccination Date: denies (HUI BOND APRN) Seasonal Allergies Seasonal Allergies: No (HUI BOND APRN) Past Medical History Surgery/Hospitalization HX: 3 c-sections; cholecysectomy; Tubal ligation Surgeries: Yes (C/S x 2) Adenoidectomy, Section, Gallbladder, Tonsillectomy Respiratory: No Currently Using CPAP: No Currently Using BIPAP: No Cardiac: No Neurological: No Last Menstrual Period: Dec 03, 2021 Genitourinary: No Gastrointestinal: No Musculoskeletal: No Endocrine: No HEENT: No Cancer: No Psychosocial: No Integumentary: No Blood Disorders: No (HUI BOND APRN) Family Medical History Reviewed Nursing Family Hx (HUI BOND APRN) Physical Exam Vital Signs Vital Signs - First Documented 12/23/21 12/23/21 18:00 19:55 Temp 36.8 Pulse 76 Resp 18 B/P (MAP) 96/62 (73) Pulse Ox 98 O2 Delivery Room Air (FRANKLIN,DUSTY K DO) Vital Signs Capillary Refill : Less Than 3 Seconds (HUI BOND APRN) Height, Weight, BMI Height: '" Weight: lbs. oz. kg; 19.00 BMI Method: General Appearance: No Apparent Distress, WD/WN Eyes: Bilateral Eye Normal Inspection, Bilateral Eye PERRL HEENT: PERRL/EOMI, TMs Normal, Normal ENT Inspection, Pharynx Normal, Moist Mucous Membranes Neck: Full Range of Motion, Normal Inspection, Non Tender, Supple Respiratory: Chest Non Tender, Lungs Clear, Normal Breath Sounds, No Accessory Muscle Use, No Respiratory Distress Cardiovascular: Regular Rate, Rhythm, No Edema Neurologic/Psychiatric: Alert, Oriented x3, No Motor/Sensory Deficits, Normal Mood/Affect, gynecological assistant II-XII Norm as Tested Skin: Normal Color, Warm/Dry (HUI BOND APRN) Progress/Results/Core Measures Suspected Sepsis SIRS Temperature: Pulse: 76 Respiratory Rate: 18 Blood Pressure 96 /62 Mean: 73 (HUI BODN APRN) Results/Orders Vital Signs/I&O 12/23/21 12/23/21 18:00 19:55 Temp 36.8 Pulse 76 67 Resp 18 18 B/P (MAP) 96/62 (73) 97/74 Pulse Ox 98 98 O2 Delivery Room Air (DUSTY ANGEL DO) Vital Signs/I&O Capillary Refill : Less Than 3 Seconds (HUI BOND APRN) Blood Pressure Mean: 73 Progress Note : Progress Note Long discussion had with patient in regards to her chronic symptoms that she presented with today. Essentially just needed a work note. I explained to her that she needs to see her PCP or consider follow up with neurologist for further evaluation and treatment. She had no neuro focal deficits on exam. Also explained to her that her spinal likely did not cause these symptoms that she is experiencing. Reasons to return to the ER were discussed with patient. Will give shot of Toradol prior to discharge. Again no focal neuro deficits were appreciated on exam and these symptoms have been ongoing since August 2020. (HUI BOND APRN) Departure Impression Primary Impression: Chronic pain Qualified Codes: G89.29 - Other chronic pain Disposition: 01 HOME, SELF-CARE Condition: Stable Departure-Patient Inst. Decision time for Depature: 19:24 (HUI BOND APRN) Referrals: VANESSA BOSE MD (PCP/Family) Primary Care Physician Patient Instructions: CHRONIC PAIN Add. Discharge Instructions: 1. Follow up with PCP for further evaluation and treatment of your chronic pain. 2. Alternate Tylenol/Ibuprofen as needed for pain. 3. Return here if worse or concerns. All discharge instructions reviewed with patient and/or family. Voiced understanding. Work/School Note: Work Release Form Date Seen in the Emergency Department: Dec 23, 2021 Return to Work: Dec 25, 2021 Restrictions: No Restrictions ATTENDING PHYSICIAN NOTE: I WAS PHYSICALLY PRESENT ER PHYSICIAN, BUT I WAS NOT INVOLVED IN ANY DECISION MAKING OR ANY CARE OF THIS PATIENT, AND I AM NOT COLLABORATING PHYSICIAN. (DUSTY ANGEL DO) HUI BOND APRN Dec 23, 2021 19:22 DUSTY ANGEL DO Dec 28, 2021 02:55
[2021-12-23] MEDS ORDERED: KETOROLAC 60 MG/2 ML VIAL IM ONE (19:30)
[2021-12-23 19:55] VITALS: BP 97/74
== END 2021-12-23 19:55 | disposition home or self-care (01) ==
LOC: EDUNIT# 17:27 → ER 17:29
DX: G89.29 Other chronic pain (principal); Z28.310 Unvaccinated for COVID-19

== ENCOUNTER 2022-02-05 07:19 | Emergency (ER) | payer MEDICAID ==
[~2022-02-05] VITALS: Ht 175 cm; Wt 57.0 kg
[2022-02-05] MEDS ORDERED: morphine INJ 10 MG/ML 1ML (SYR OR VIAL) IM STA (07:35)
--- NOTE | 2022-02-05 07:43 | ED Back Pain ---
General Chief Complaint: Back Problems Stated Complaint: LWR BACK PAIN Source of Information: Patient Exam Limitations: No Limitations History of Present Illness Date Seen by Provider: Feb 05, 2022 Time Seen by Provider: 07:15 Initial Comments Patient is a 27-year-old female with history of chronic back pain/sciatica who presents with acute exacerbation of chronic low back pain upon waking this morning. Pain is sharp moderate to severe and radiates to left hip and posteriorly above left knee. Tylenol taken prior to ED arrival with minimal improvement there is no motor weakness loss of sensation or loss of bowel or bladder function. Patient denies injury or exacerbating condition prior to symptom onset. No abdominal pain. No nausea or vomiting, no flank pain. Patient is currently on day one of her menstrual period which she reports is regular. No other acute symptoms or complaints. Timing/Duration: 4-6 Hours, Other Pain/Injury Location: Other Radiation: Other Method of Injury: Other Modifying Factors: Improves With Other Associated Symptoms: other Allergies and Home Medications Allergies Coded Allergies: Penicillins (Unverified Adverse Reaction, Unknown, 11/01/19) ondansetron (Unverified Adverse Reaction, Unknown, 11/01/19) Uncoded Allergies: Silk tape (Adverse Reaction, Mild, rash, 11/01/19) Patient Home Medication List Home Medication List Reviewed: Yes Cephalexin (Cephalexin) 500 Mg Capsule, 500 MG PO TID Prescribed by: MG DUMONT on 12/16/21 0725 Docusate Sodium (Dok) 100 Mg Capsule, 100 MG PO BID PRN for CONSTIPATION-1ST LINE Prescribed by: JEANA GHOSH on 08/21/20 0725 Famotidine (Pepcid) 20 Mg Tablet, 20 MG PO DAILY, (Reported) Entered as Reported by: JG LICEA on 05/01/20 1123 Hydrocodone Bit/Acetaminophen (HYDROcodone/APAP 5 MG/325 MG TAB) 1 Tab Tab, 1-2 EA PO Q6HR PRN for PAIN-MODERATE (5-7) Prescribed by: JEANA GHOSH on 08/21/20 0725 Hydrocodone/Acetaminophen (Hydrocodone-Acetamin 5-325 mg) 1 Each Tablet, 1 TAB PO Q4H PRN for PAIN-MODERATE (5-7) Prescribed by: JEANA GHOSH on 10/08/20 1535 Ibuprofen (Ibu) 600 Mg Tablet, 600 MG PO Q6HR Prescribed by: JEANA GHOSH on 08/21/20 0725 Ibuprofen (Ibuprofen) 600 Mg Tablet, 600 MG PO Q6H Prescribed by: JEANA GHOSH on 10/08/20 1534 Ibuprofen (Ibuprofen) 600 Mg Tablet, 600 MG PO Q8H PRN for pain/inflammation Prescribed by: MG DUMONT on 12/16/21 0725 Mupirocin (Mupirocin) 2 % Oint...g., 0.5 GM TP BID Prescribed by: MG DUMONT on 12/16/21 0725 Naproxen (Naprosyn) 500 Mg Tablet, 500 MG PO BID Prescribed by: KELLEE CARRENO on 12/29/20 0729 Naproxen (Naprosyn) 500 Mg Tablet, 500 MG PO BID PRN for pain Prescribed by: Sydney braun on 10/23/21 1513 Vit W-Ca,Fe,FA(<1 mg) ( Vitamins) 1 Each Tablet, 1 EACH PO DA LUPE, (Reported) Entered as Reported by: JOSEPH LING on 04/11/20 1555 Sulfamethoxazole/Trimethoprim (Bactrim Ds Tablet) 1 Each Tablet, 1 EACH PO BID Prescribed by: YESICA NORRIS on 10/12/212001 Review of Systems Constitutional: see HPI EENTM: see HPI Respiratory: see HPI Cardiovascular: see HPI Gastrointestinal: see HPI Genitourinary: see HPI : No Musculoskeletal: see HPI Skin: see HPI Psychiatric/Neurological: See HPI All Other Systems Reviewed Negative Unless Noted: No Past Srrkrub-Hajnki-Etwdlf Hx Patient Social History Tobacco Use?: No Immunizations Up To Date PED Vaccines UTD: No First/Initial COVID19 Vaccinat: denies Second COVID19 Vaccination Kofi: denies Third COVID19 Vaccination Date: denies Seasonal Allergies Seasonal Allergies: No Past Medical History Surgery/Hospitalization HX: 3 c-sections; cholecysectomy; Tubal ligation Surgeries: Yes (C/S x 2) Adenoidectomy, Section, Gallbladder, Tonsillectomy Respiratory: No Currently Using CPAP: No Currently Using BIPAP: No Cardiac: No Neurological: No Genitourinary: No Gastrointestinal: No Musculoskeletal: No Endocrine: No HEENT: No Cancer: No Psychosocial: No Integumentary: No Blood Disorders: No Physical Exam Vital Signs Capillary Refill : Height, Weight, BMI Height: '" Weight: lbs. oz. kg; 19.00 BMI Method: General Appearance: No Apparent Distress, Anxious, Mild Distress HEENT: PERRL/EOMI, Normal ENT Inspection, Pharynx Normal Neck: Full Range of Motion, Normal Inspection Cardiovascular: Regular Rate, Rhythm, No Edema Respiratory: Lungs Clear Gastrointestinal: Non Tender, Soft Back: Normal Inspection, No CVA Tenderness Neurologic/Psychiatric: Alert, Oriented x3, No Motor/Sensory Deficits, digital advertising analyst II- XII Norm as Tested Skin: Normal Color, Warm/Dry Progress/Results/Core Measures Results/Orders My Orders Orders - KELLEE CARRENO DO Morphine Injection (Morphine Injection (02/05/22 07:35) Diazepam Tablet (Valium Tablet) (02/05/22 07:45) Ketorolac Injection (Toradol Injection) (02/05/22 07:45) Departure Communication (Admissions) Acute exacerbation of low back pain without neurologic deficit. Pain addressed. Recommendations for supportive care watchful waiting and PCP follow-up. Return precautions reviewed. Patient verbalizes understanding and agreement with discharge instructions prior to departure. Impression Primary Impression: Lumbar radiculopathy Disposition: HOME, SELF-CARE Condition: Stable Departure-Patient Inst. Decision time for Depature: 07:42 Referrals: VANESSA BOSE MD (PCP/Family) Primary Care Physician Patient Instructions: Radiculopathy Add. Discharge Instructions: Your evaluated in the emergency department for low back pain. Please go home an d rest, avoid strenuous physical activity heavy lifting. Take hydrocodone Flexeril as needed for back pain. Follow-up with your PCP in 2 to 3 days for reevaluation if symptoms persist. Return to the ED if new or worsening symptoms. All discharge instructions reviewed with patient and/or family. Voiced understanding. Scripts Cyclobenzaprine HCl (Cyclobenzaprine HCl) 10 Mg Tablet 10 MG PO TID, #30 TAB Prov: KELLEE CARRENO DO 02/05/22 Hydrocodone/Acetaminophen (Hydrocodone-Acetamin 5-325 mg) 5 Mg-325 Mg Tablet 1 TAB PO Q4H PRN for PAIN-MODERATE (5-7), #10 TAB Prov: KELLEE CARRENO DO 02/05/22 KELLEE CARRENO DO Feb 05, 2022 07:43
[2022-02-05] MEDS ORDERED: KETOROLAC 60 MG/2 ML VIAL IM ONE (07:45)
[2022-02-05 07:51] VITALS: BP 110/95
[2022-02-05] MEDS ORDERED: CYCL10TA25 PO (07:57)
[2022-02-05] MEDS ORDERED: ACHD5005 PO (07:57)
== END 2022-02-05 08:08 | disposition home or self-care (01) ==
LOC: EDUNIT# 07:19 → ER FS 07:21
DX: M54.16 Radiculopathy, lumbar region (principal); Z28.310 Unvaccinated for COVID-19
CPT/HCPCS: 99284